=== PATIENT | female | born 1935 | race Caucasian/White ===

== ENCOUNTER → 2019-11-23 10:07 | Outpatient (BNVA) | payer MEDICARE, OTHER, SELFPAY | PROVIDERS: Family Provider Family Medicine; PCP Family Medicine; Visit Provider Family Medicine | DX: E78.2 Mixed hyperlipidemia (principal); I10 Essential (primary) hypertension; E04.9 Nontoxic goiter, unspecified; Z68.27 Body mass index [BMI] 27.0-27.9, adult; F17.211 Nicotine dependence, cigarettes, in remission | CPT/HCPCS: 80053; 80061; 85007; 85025; 87086 ==

== ENCOUNTER 2019-12-04 03:14 | Observation (INO) | payer MEDICARE, OTHER, SELFPAY ==
[2019-12-04] VITALS (17 sets, daily range): BP systolic 156–239; BP diastolic 49–106; PULSE 70–87; RESP 14–30; TEMP 36.1–36.7; O2SAT 92–922; BMI 27.7
--- NOTE | 2019-12-04 03:16 | ECG_ITS ---
[facility] Test Date: 2019-12-04 Pat Name: Chayito Tate Department: Room: 112 Gender: Female [place] Clerk: : 1935 Requested By: Gasper Monteiro Order Number: [id number] Naveed MD: Tobin Wang M.D. Measurements Intervals [place] Rate: 75 P: 61 AL: 199 QRS: -6 QRSD: 82 T: 95 QT: 411 QTc: 459 Interpretive Statements SINUS RHYTHM LEFT ATRIAL ENLARGEMENT [-0.15mV P WAVE IN V1/V2] ST DEVIATION AND MODERATE T-WAVE ABNORMALITY, CONSIDER LATERAL ISCHEMIA [-0.1+ mV T WAVE IN I/aVL/V5/V6] Compared to ECG 02/26/2019 22:59:14 Atrial abnormality now present T-wave abnormality still present Possible ischemia still present Electronically Signed On 12-04-2019 17:35:43 CDT by Tobin Wang M.D. [id number]
--- NOTE | 2019-12-04 03:16 | XRR_ITS ---
PROCEDURE INFORMATION: Exam: XR Chest, 1 View Exam date and time: 12/04/2019 3:35 AM Age: 84 years old Clinical indication: Chest pain; Type not specified; Prior surgery; Surgery type: Bilat mastectomy, stents; Additional info: Cp TECHNIQUE: Imaging protocol: XR of the chest Views: 1 view. COMPARISON: CR Chest 1 [place] [id number] 02/26/2019 8:59 PM FINDINGS: Lungs: A stable calcified granuloma seen in the right lower hemithorax. Pleural space: Unremarkable. No pleural effusion. No pneumothorax. Heart/Mediastinum: Unremarkable. No cardiomegaly. Bones/joints: Unremarkable. XR/XR chest 1V portable [id number] IMPRESSION: There are no acute chest findings.
--- NOTE | 2019-12-04 03:23 | W.ED.CHESTPA ---
HPI - Chest Pain General: Chief Complaint: Chest Pain Stated Complaint: chest pain Time Seen by Provider: 12/04/19 03:18 Source: patient Mode of arrival: ambulatory Limitations: no limitations History of Present Illness: HPI narrative: 84-year-old female has a history of coronary artery disease states she started having severe chest pain center of her chest roughly 2 to 3 hours ago. States pain radiated to her left arm. She states she took a nitro and her pain is now 2 out of 10. Denies any shortness of breath or vomiting. She states that the last time she had pain like this was in February and she had a heart attack at that time and had a stent placed. She has not followed up since then she has been too scared to come out of the house due to the coronavirus. Onset (ago): hour(s) Timing of current episode: constant Onset: during rest Pain radiation: left arm Severity: moderate Associated symptoms: Deny abdominal pain, dyspnea, fever(s), nausea or vomiting Review of Systems Const: Denies: fever(s), chills, body aches or change in appetite Eyes: Denies: blurry vision or eye discomfort ENMT: Denies: throat pain or dental pain Card: Reports: chest pain Resp: Denies: dyspnea GI: Denies: abdominal pain, nausea, vomiting or diarrhea : Denies: dysuria Musc: Denies: neck pain or back pain Skin/Breast: Denies: rash Neuro: Denies: headache(s) Psych: Denies: depression Woo/Lymph: Denies: easy bruising All/Imm: Denies: urticaria PFSH ED PFSH: Medical History (Updated 12/04/19 @ 05:10 by Brandon Abraham MD) CAD (coronary artery disease) CLL (chronic lymphocytic leukemia) Essential hypertension Hyperlipidemia Old [place] (myocardial infarction) Thyroid goiter Surgical History (Updated 12/04/19 @ 05:10 by Brandon Abraham MD) H/O: hysterectomy History of coronary artery stent placement History of rectal surgery S/P bilateral mastectomy S/P inguinal hernia repair Family History Father Cancer Brother Cancer Grandmother Suicide Grandfather Suicide Brother Suicide Social History Smoking and tobacco status: former smoker Alcohol intake: never Household members: friend(s) Marital status: / Physical Exam Const: COMMON NORMALS: no acute distress, patient oriented x3 and healthy appearing HENMT: COMMON NORMALS: normocephalic and atraumatic HEAD & SCALP: normocephalic and atraumatic Eye: COMMON NORMALS: Equal, round and reactive pupils present and EOMs intact bilaterally PUPIL: Yes Equal, round and reactive pupils present Neck/C-Spine: COMMON NORMALS: full ROM and supple Chest: COMMONS NORMALS: normal inspection of the chest and normal palpation of entire chest wall Resp: COMMON NORMALS: normal respiratory effort, No retractions, No use of accessory muscles and clear to auscultation bilaterally AUSCULTATION: clear to auscultation bilaterally Cardio: COMMON NORMALS: regular rate, regular rhythm and No murmurs present (Cardio) RATE: regular rate RHYTHM: regular rhythm GI: COMMON NORMALS: Normal to inspection, nondistended, normoactive bowel sounds present, Soft to palpation, non-tender and no masses PALPATION: Yes Soft to palpation Extremity: COMMON NORMALS: normal to inspection and full ROM Neuro: COMMON NORMALS: patient oriented x3, moves all extremities and no focal motor deficits Psych: COMMON NORMALS: mental status grossly normal, Normal thought process present and cooperative THOUGHT PROCESS: Normal thought process present Skin: COMMON NORMALS: no rashes or lesions noted and no wounds GENERAL SKIN EXAM: no rashes or lesions noted Course Vital Signs: Vital signs: Vital Signs Temperature 96.9 F L 12/04/19 03:19 Pulse Rate 76 12/04/19 05:00 Respiratory Rate 14 12/04/19 05:00 Blood Pressure 239/70 12/04/19 05:00 Pulse Oximetry 97 12/04/19 05:00 MDM - Chest Pain MDM Narrative: Medical decision making narrative: Patient presents here with chest pain. Patient's EKG and troponin here are benign. Does have extensive history and will admit for rule out. Spoke to hospitalist Dr. Russell and will admit. Lab Data: Labs: Lab Results 12/04/19 12/04/19 12/04/19 Range/Units 03:30 03:30 03:30 WBC 58.1 H* (4.0-10.0) 10^3/ uL RBC 3.66 L (4.1-5.3) 10^6/u L Hgb 11.5 (11.5-15.3) g/dL Hct 37.4 (37.0-47.0) % MCV 102.2 H (81-99) fL MCH 31.4 (28.0-34.0) pg MCHC 30.7 (30.0-36.0) g/dL RDW 14.5 (12.1-15.1) % Plt Count 180 (130-400) 10^3/c mm MPV 10.7 H (7.4-10.4) fL Neut % (Auto) 5.8 % Lymph % (Auto) 90.7 % Evangeline % (Auto) 3.0 % Eos % (Auto) 0.3 % Baso % (Auto) 0.1 % Neut # (Auto) 3.32 (1.8-7.7) 10^3/u L Lymph # (Auto) 52.7 H (0.8-4.8) 10^3/u L Evangeline # (Auto) 1.8 H (0.2-0.9) 10^3/u L Eos # (Auto) 0.2 (0.0-0.8) 10^3/u L Baso # (Auto) 0.1 (0.0-0.1) 10^3/u L Nucleated RBC % (a uto) 0 % Nucleated RBCs # 0.0 /100WBC PT 12.00 L (12.1-14.9) SECO NDS INR 0.86 (0.8-1.2) Sodium 141 (136-145) mmol/L Potassium 4.4 (3.5-5.1) mmol/L Chloride 108 H (98-107) mmol/L Carbon Dioxide 23 (22-29) mmol/L Anion Gap 14.4 (5-19) BUN 24 H (8-23) mg/dL Creatinine 1.2 H (0.5-0.9) mg/dL GFR Calculation Not Reportable Glucose 104 (65-115) mg/dL Calculated Osmolal ity 296 H (285-295) mOsm/k g Calcium 9.0 (8.5-10.5) mg/dL Total Bilirubin 0.2 (0.15-1.2) mg/dL AST 17 (0-32) U/L ALT 9 (0-33) U/L Alkaline Phosphata se 113 H (35-105) IU/L Troponin T Baselin e (0-10) ng/L Total Protein 6.3 L (6.6-8.7) g/dL Albumin 4.1 (3.5-5.2) g/dL Globulin 2.2 (1.3-4.6) g/dL 12/04/19 Range/Units 03:30 WBC (4.0-10.0) 10^3/ uL RBC (4.1-5.3) 10^6/u L Hgb (11.5-15.3) g/dL Hct (37.0-47.0) % MCV (81-99) fL MCH (28.0-34.0) pg MCHC (30.0-36.0) g/dL RDW (12.1-15.1) % Plt Count (130-400) 10^3/c mm MPV (7.4-10.4) fL Neut % (Auto) % Lymph % (Auto) % Evangeline % (Auto) % Eos % (Auto) % Baso % (Auto) % Neut # (Auto) (1.8-7.7) 10^3/u L Lymph # (Auto) (0.8-4.8) 10^3/u L Evangeline # (Auto) (0.2-0.9) 10^3/u L Eos # (Auto) (0.0-0.8) 10^3/u L Baso # (Auto) (0.0-0.1) 10^3/u L Nucleated RBC % (a uto) % Nucleated RBCs # /100WBC PT (12.1-14.9) SECO NDS INR (0.8-1.2) Sodium (136-145) mmol/L Potassium (3.5-5.1) mmol/L Chloride (98-107) mmol/L Carbon Dioxide (22-29) mmol/L Anion Gap (5-19) BUN (8-23) mg/dL Creatinine (0.5-0.9) mg/dL GFR Calculation Glucose (65-115) mg/dL Calculated Osmolal ity (285-295) mOsm/k g Calcium (8.5-10.5) mg/dL Total Bilirubin (0.15-1.2) mg/dL AST (0-32) U/L ALT (0-33) U/L Alkaline Phosphata se (35-105) IU/L Troponin T Baselin e 13 H (0-10) ng/L Total Protein (6.6-8.7) g/dL Albumin (3.5-5.2) g/dL Globulin (1.3-4.6) g/dL Imaging Data^: CXR: Attestation: I personally reviewed and interpreted this imaging study as follows: My impression: no acute abnormality EKG Data^: EKG 1: Attestation: I personally reviewed and interpreted this EKG as follows: EKG interpretation date: 12/04/19 EKG interpretation time: 03:22 Interpretation: nsr hr [address] or t wave abnormalities qrs 77 qtc 418 Discharge Plan Discharge Patient Disposition: Admitted As Inpatient Admit Provider: Brandon Abraham Clinical Impression: Chest pain Qualifiers: Chest pain type: unspecified Qualified Code(s): R07.9 - Chest pain, unspecified Condition: Stable Coding Level of Care Code ED Pipe Fitter Helper for 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
--- NOTE | 2019-12-04 03:25 | PC.NURSE ---
EKG done at 0325 and shown to ER doctor
[2019-12-04] MEDS: aspirin 81 mg Chew Tablet 324 MG PO (03:43)
[2019-12-04] MEDS: morphine 4 mg/mL SDV 1 mL IVP ×2 (03:44→23:40)
[2019-12-04 03:45] LABS: Basophils # 0.1 10^3/uL (0.0-0.1); Basophils % 0.1 %; Eosinophils # 0.2 10^3/uL (0.0-0.8); Eosinophils % 0.3 %; Hematocrit 37.4 % (37.0-47.0); Hemoglobin 11.5 g/dL (11.5-15.3); Lymphocytes # 52.7 10^3/uL (0.8-4.8); Lymphocytes % 90.7 %; Mean Corpuscular HGB Conc 30.7 g/dL (30.0-36.0); Mean Corpuscular Hemoglobin 31.4 pg (28.0-34.0); Mean Corpuscular Volume 102.2 fL (81-99); Mean Platelet Volume 10.7 fL (7.4-10.4); Monocytes # 1.8 10^3/uL (0.2-0.9); Neutrophils # 3.32 10^3/uL (1.8-7.7); Neutrophils % 5.8 %; Nucleated Red Blood Cells % 0 %; Platelet Count 180 10^3/cmm (130-400); Red Blood Count 3.66 10^6/uL (4.1-5.3); Red Cell Distribution Width 14.5 % (12.1-15.1)
[2019-12-04 03:52] LABS: INR 0.86 (0.8-1.2)
[2019-12-04 04:01] LABS: Alanine Aminotransferase 9 U/L (0-33); Albumin Level 4.1 g/dL (3.5-5.2); Alkaline Phosphatase 113 IU/L (35-105); Aspartate Amino Transferase 17 U/L (0-32); Blood Urea Nitrogen 24 mg/dL (8-23); Carbon Dioxide 23 mmol/L (22-29); Chloride 108 mmol/L (98-107); Globulin 2.2 g/dL (1.3-4.6); Glucose 104 mg/dL (65-115); Osmolality Calculated 296 mOsm/kg (285-295); Sodium 141 mmol/L (136-145); Total Bilirubin 0.2 mg/dL (0.15-1.2); Total Protein 6.3 g/dL (6.6-8.7)
[2019-12-04 04:02] LABS: Anion Gap 14.4 (5-19); Potassium 4.4 mmol/L (3.5-5.1)
[2019-12-04 04:04] LABS: Troponin(5th) Baseline 13 ng/L (0-10)
[2019-12-04] MEDS: hyDRALAzine 20 mg/mL INJ 1 mL 5 MG IVP (04:12)
[2019-12-04 04:19] LABS: Slide Review Slide Review Perform; White Blood Count 58.1 10^3/uL (4.0-10.0)
[2019-12-04] MEDS: nitroglycerin 0.4 mg sublingual Tablet SUBLINGUAL ×3 (05:02→23:22)
--- NOTE | 2019-12-04 05:07 | PC.NURSE ---
EKG done at 0505 and shown to ER doctor
--- NOTE | 2019-12-04 05:08 | PM.HP ---
Providers/Chief Complaint Admitting Physician: Brandon Abraham MD Primary Care Provider: Kamla Benavidez DO Chief Complaint: chest pain History of Present Illness Chayito Tate is a 84 year old female who carries history of established coronary disease status post stent placement in February 2019 came in with chief complaint of left arm pain radiating towards her back. Patient is stating that she has been experiencing left arm pain for last 2 days, she is describing this pain as sharp excruciating pain radiating towards her back, she has not noticed any chest pain, this arm pain resolved with taking nitroglycerin today. This pain is not similar to the one when she had stent placement in February. She did not experience any nausea, vomiting, diaphoresis, dizziness, syncope. She has history of CLL, mastectomy secondary to breast cancer. She is compliant with her medications, she has been leading a sedentary lifestyle, homebound due to the current pandemic. Diagnosis in the ER revealed hypertensive urgency, she required hydralazine 5 mg on admission, I have requested CTA chest and abdomen to rule out aortic dissection, her EKG showing ST depression in inferior lateral leads, troponin 13, patient is chest pain-free, on review of previous EKGs these changes are not new she had ST depression anterior inversion in inferior lateral leads previously as well Review of Systems Const: Reports: body aches, fatigue and malaise; Denies: fever(s) or chills Eyes: Denies: change in vision ENMT: Denies: throat pain Card: Reports: dyspnea on exertion Resp: Denies: dyspnea GI: Denies: abdominal pain : Denies: flank pain Musc: Reports: extremity pain and muscle cramps Skin/Breast: Denies: rash Neuro: Denies: headache(s) Psych: Denies: anxiety Endo: Denies: polyuria Woo/Lymph: Denies: easy bruising All/Imm: Denies: urticaria Medications/Allergies Home Medications Medication Instructions Recorded Confirmed Last Taken Type cholecalciferol (vitamin D3) 75 3,000 unit PO QDAY 04/09/19 11/23/19 Unknown History mcg (3,000 unit) tablet mecobalamin (vitamin B12) 5,000 5,000 mcg PO QDAY tab 04/09/19 11/23/19 Unknown History mcg disintegrating tablet melatonin 5 mg capsule 5 mg PO .AT BEDTIME PRN cap 04/09/19 11/23/19 Unknown History nitroglycerin 0.4 mg sublingual 0.4 mg SUBLINGUAL Q5M PRN 04/13/19 11/23/19 Unknown History tablet losartan 25 mg tablet 25 mg PO DAILY #90 tab 09/21/19 11/23/19 Unknown Rx metoprolol tartrate 75 mg tablet 75 mg PO BID #90 tab 11/23/19 11/23/19 Unknown Rx simvastatin 20 mg tablet 20 mg PO QDAY #90 tab 11/24/19 Unknown Rx clopidogrel 75 mg tablet 75 mg PO QDAY #90 tab 11/25/19 Unknown Rx Allergies Allergy/AdvReac Type Severity Reaction Status Date / Time Sulfa (Sulfonamide Allergy Mild Unknown Verified 11/23/19 09:30 Antibiotics) diphenhydramine AdvReac Mild ADR-Itching Verified 11/23/19 09:30 [From [facility]] PFSH Acute PFSH: Medical History CAD (coronary artery disease) CLL (chronic lymphocytic leukemia) Essential hypertension Hyperlipidemia [place] (myocardial infarction) Thyroid goiter Surgical History H/O: hysterectomy History of coronary artery stent placement History of rectal surgery S/P bilateral mastectomy S/P inguinal hernia repair Family History Father Cancer Brother Cancer Grandmother Suicide Grandfather Suicide Brother Suicide Social History Smoking and tobacco status: former smoker Alcohol intake: never Household members: friend(s) Marital status: / Vitals/I&O/Wt Last Vital Signs Temp 96.9 F L 12/04/19 03:19 Pulse 76 12/04/19 05:00 Resp 14 12/04/19 05:00 BP 239/70 12/04/19 05:00 Pulse Ox 97 12/04/19 05:00 Weight last 48 hrs Weight 72.121 kg Physical Exam Narrative: EXAM NARRATIVE: Very pleasant elderly female Currently comfortable in her bed Chest pain-free No radial radial delay S1, S2 systolic murmur right second intercostal space grade 2/6 No sign of heart failure EOMI, PERRLA No neurological deficit Abdomen soft nontender bowel sound present No lower extremity edema gangrene ulcer Lungs are clear to auscultation Appropriate mood and affect No skin ulcers noted Data : 12/04/19 03:30 12/04/19 03:30 A&P Assessment and plan (1) Hypertensive urgency: Status: Acute (2) Leucocytosis: Status: Acute (3) Back pain: Status: Acute (4) Left arm pain: Status: Acute Additional A&P Information Hypertensive urgency 228/70 mmHg blood pressure on admission which improved with hydralazine IV 5 mg Patient is complaining of left arm pain radiating towards her back No radio- radial delay, no vascular compromise, patient is currently chest pain-free CTA chest abdomen to rule out aortic dissection Increase the dose of metoprolol from 75 mg to 100 mg twice a day, added amlodipine Left arm pain radiating towards her back Patient not complaining of chest pain, will obtain echo to rule out wall motion abnormality, [id number], EKG showing old inferior lateral ST depression and T wave inversions Patient is not diabetic, she is not endorsing this pain similar to the one when stents were placed I highly doubt NSTEMI at this point, would not initiate anticoagulation for now, I do believe her symptoms are secondary to hypertensive urgency She also carries history of hiatal hernia CLL Leukocytosis secondary to CLL No signs of opportunistic infections No acute decompensation Chronic kidney disease Her baseline creatinine seems to be around 1.1 She is also taking losartan, for now I would only increase the dose of metoprolol for hypertensive urgency Full code DVT prophylaxis Heparin, which will be initiated after ruling out aortic dissection Cardiac diet Attestations Medical Necessity Statement*: Dissipating discharge in less than 48 hours currently need to rule out aortic dissection because of her back pain with hypertensive urgency Time Spent in Patient Care: (>than 50% of time spent in counselling and/or direct pt care on unit). 40 minutes Coding Level of Care Code Acute Occupational Therapy Supervisor for Giag Fwd Diagnoses Hypertensive urgency I16.0 Leucocytosis D72.829 Back pain M54.9 Left arm pain M79.602
--- NOTE | 2019-12-04 05:16 | ECG_ITS ---
[facility] Test Date: 2019-12-04 Pat Name: Chayito Tate Department: Room: 112 Gender: Female Ply Bander: : 1935 Requested By: Gasper Monteiro Order Number: [id number] Naveed MD: Kristal Jarvis M.D. Measurements Intervals [place] Rate: 79 P: 70 CT: 203 QRS: -1 QRSD: 77 T: 74 QT: 383 QTc: 441 Interpretive Statements SINUS RHYTHM LEFT ATRIAL ENLARGEMENT [-0.15mV P WAVE IN V1/V2] ST DEVIATION AND MODERATE T-WAVE ABNORMALITY, CONSIDER LATERAL ISCHEMIA [-0.1+ mV T WAVE IN I/aVL/V5/V6] Compared to ECG 02/26/2019 22:59:14 Atrial abnormality now present T-wave abnormality still present Possible ischemia still present Electronically Signed On 12-04-2019 8:38:34 CDT by Kristal Jarvis M.D. [id number] f
--- NOTE | 2019-12-04 05:42 | CTR_ITS ---
PROCEDURE INFORMATION: Exam: CT Angiography Chest With Contrast Exam date and time: 12/04/2019 5:43 AM Age: 84 years old Clinical indication: Chest pain; Prior surgery; Surgery type: Stents, mastectomy; Additional info: Rule out aortic dissection TECHNIQUE: Imaging protocol: Computed tomographic angiography of the chest with intravenous contrast. 3D rendering (Not supervised by radiologist): MIP and/or 3D reconstructed images were created by the technologist. Radiation optimization: All CT scans at this facility use at least one of these dose optimization techniques: automated exposure control; mA and/or kV adjustment per patient size (includes targeted exams where dose is matched to clinical indication); or iterative reconstruction. Contrast material: VISI; Contrast volume: 95 ml; Contrast route: INTRAVENOUS (IV); COMPARISON: CT chest w con* [id number] 12/13/2015 11:53 AM RADIATION DOSE METRICS: Total DLP (mGy-cm): 1024.01 FINDINGS: Pulmonary arteries: Normal. No pulmonary emboli. Aorta: Unremarkable. No aortic aneurysm. No aortic dissection. Great vessels off aortic arch: Diffuse calcifications are seen within the thoracic aorta and origin of the great vessels. Lungs: Calcifications are seen within the tracheobronchial tree. There is a 5.8 mm pulmonary nodularity seen in the right upper lobe medially. A calcified 4.7 mm granuloma seen in the right lung base laterally. Pleural space: Unremarkable. No pneumothorax. No pleural effusion. Heart: Calcifications are seen in the coronary arteries. Lymph nodes: Unremarkable. No enlarged lymph nodes. Bones/joints: Unremarkable. No acute fracture. Soft tissues: Unremarkable. IMPRESSION: 1. There is no evidence for aneurysmal dilatation or dissection of the thoracic aorta. 2. Pulmonary nodularity in the right upper lobe medially measuring 5.8 mm . For patients at low risk (minimal or absent history of smoking and of other known risk factors), no routine follow-up is indicated. For patients at high risk (history of smoking or of other known risk factors), consider optional CT at 12 months. (diony Tatum al., Fleischner Society, 2017) PROCEDURE INFORMATION: Exam: CT Angiography Abdomen With Contrast Exam date and time: 12/04/2019 5:43 AM Age: 84 years old Clinical indication: Chest pain; Prior surgery; Surgery type: Stents, mastectomy; Additional info: Rule out aortic dissection TECHNIQUE: Imaging protocol: Computed tomographic angiography images of the abdomen with intravenous contrast material. 3D rendering (Not supervised by radiologist): MIP and/or 3D reconstructed images were created by the technologist. Radiation optimization: All CT scans at this facility use at least one of these dose optimization techniques: automated exposure control; mA and/or kV adjustment per patient size (includes targeted exams where dose is matched to clinical indication); or iterative reconstruction. Contrast material: VISI; Contrast volume: 95 ml; Contrast route: INTRAVENOUS (IV); COMPARISON: CT chest w con* [id number] 12/13/2015 11:53 AM RADIATION DOSE METRICS: Total DLP (mGy-cm): 1024.01 FINDINGS: Mediastinum: There is a small hiatal hernia present. Aorta: Calcifications are seen within the abdominal aorta, iliac arteries bilaterally and origin of the left renal artery. Celiac trunk and mesenteric arteries: No occlusion or significant stenosis. Renal arteries: No occlusion or significant stenosis. Liver: Normal. No mass. Gallbladder and bile ducts: There is a tiny hyperdensity seen within the gallbladder compatible with tiny gallstone. Pancreas: Normal. No ductal dilation. Spleen: Normal. No splenomegaly. Adrenals: Normal. No mass. Kidneys and ureters: Normal. No hydronephrosis. Stomach and bowel: Unremarkable. No obstruction. No mucosal thickening. Lymph nodes: Unremarkable. No enlarged lymph nodes. Intraperitoneal space: Unremarkable. No free air. No significant fluid collection. Bones/joints: Unremarkable. No acute fracture. No dislocation. Soft tissues: Unremarkable. CT/CT angio chest abdomen IMPRESSION: 1. There is no evidence for aneurysmal dilatation, dissection or extravasation of the abdominal aorta. 2. Tiny gallstone 3. Small hiatal hernia Radiation Dose CTDIVOL = (mGy): DLP = 1024.01~1024.01 (mGy-cm)
--- NOTE | 2019-12-04 06:01 | PC.NURSE ---
PT delay leaving ED due to floor MD exam. Sent pt for CTA on the way to floor. Juliann grier
[2019-12-04 06:02] LABS: Troponin 5 2HR 12.43 ng/L (0-10)
[2019-12-04 06:03] LABS: Troponin 5 2HR Delta -0.57 ABS# (0-10)
--- NOTE | 2019-12-04 06:12 | USCV_ITS ---
Chayito Tate Age: 84 Gender: F : 1935 Exam Date: 12/04/2019 11:03 Ordering Phys: Brandon Abraham MD Technologist: Sherry Griffith [place] [facility] [place] BP: 178 / 72 HR: 78 Rhythm: Sinus Technical Quality: Adequate MEASUREMENTS (Male / Female) Normal Values 2D ECHO LV Diastolic Diameter PLAX 2.9 cm 4.2 - 5.9 / 3.9 - 5.3 cm LV Systolic Diameter PLAX 2.1 cm LV Chamber Size 3.7 cm IVS Diastolic Thickness 1.6 cm 0.6 - 1.0 / 0.6 - 0.9 cm IVS Systolic Thickness 1.9 cm LVPW Diastolic Thickness 1.1 cm 0.6 - 1.0 / 0.6 - 0.9 cm LVPW Systolic Thickness 1.5 cm RV Chamber Size 2.2 cm LVOT Diameter 1.7 cm LV Ejection Fraction 2D Teich 56.5 % LV Ejection Fraction MOD 2C 69.7 % LV Ejection Fraction 2C AL 71.7 % LA Diameter 2.8 cm LA Width 3.3 cm LA Height 3.9 cm RA Width 2.1 cm RA Height 4.6 cm Aorta at Sinotubular Diameter 2.5 cm M-MODE LV Diastolic Diameter MM 4.0 cm 4.2 - 5.9 / 3.9 - 5.3 cm LV Systolic Diameter MM 2.2 cm LV Ejection Fraction MM Teich 77.1 % IVS Diastolic Thickness MM 1.2 cm 0.6 - 1.0 / 0.6 - 0.9 cm IVS Systolic Thickness MM 1.8 cm LVPW Diastolic Thickness MM 1.1 cm 0.6 - 1.0 / 0.6 - 0.9 cm LVPW Systolic Thickness MM 1.7 cm RV Diastolic Diameter MM 1.6 cm Aortic Annulus Diameter 3.4 cm LA Ao Ratio MM 0.8 MV E Point Septal Separation 0.7 cm DOPPLER AV Peak Velocity 119.0 cm/s LVOT Peak Velocity 100.0 cm/s AV Area Cont Eq vti 1.8 cm squared AV Area Cont Eq pk 2.0 cm squared MV Area PHT 3.7 cm squared Mitral E to A Ratio 1.0 MV E' Velocity 9.0 cm/s Mitral E to MV E' Ratio 15.8 Mitral E to LV E' Lateral Ratio 13.0 Mitral E to LV E' Septal Ratio 20.5 TR Peak Velocity 290.0 cm/s TR Peak Gradient 33.7 mmHg TV Peak E Velocity 50.0 cm/s Right Atrial Pressure 3.0 mmHg Pulmonary Artery Systolic Pressu 36.6 mmHg PV Peak Velocity 77.0 cm/s RV Acceleration Time 0.1 s RV Ejection Time 0.3 s RV AcT/ET 0.4 FINDINGS Left Ventricle Normal left ventricular size and systolic function. LVEF is 55 to 60%. No regional wall motion abnormalities. Moderate LVH is noted. Grade 2 diastolic dysfunction is present. Elevated filling pressure. Right Ventricle The right ventricle is normal in size and function. Right Atrium The right atrium is normal in size. Left Atrium The left atrium is normal in size. Mitral Valve Mild mitral annular calcification is present.. There is mild to moderate mitral regurgitation. Aortic Valve Structurally normal aortic valve without significant sclerosis or stenosis. There is no aortic regurgitation. Tricuspid Valve Structurally normal tricuspid valve without significant stenosis there is mild tricuspid regurgitation noted. RVSP is 35 to 40 mmHg. Mild pulmonary hypertension. Pulmonic Valve Structurally normal pulmonic valve without significant stenosis. There is mild pulmonic regurgitation. Pericardium Normal pericardium without effusion. Aorta Normal ascending aorta dimension. CONCLUSIONS LV systolic function is normal with EF of 55 to 60%. Grade 2 diastolic dysfunction. Mild to moderate mitral regurgitation is noted. Mild pulmonary hypertension is present. Tobin Wang MD (Electronically Signed) Final Date: 04 December 2019 13:21 S
[2019-12-04] MEDS: iodixanol 320 mg/mL 100mL Btl IV (06:13)
--- NOTE | 2019-12-04 06:35 | PC.NURSE ---
Called Dr. Abraham patient started wheezing and sounds like crackles. Patient was 81-83% on room air. Patient on 6L and satting 91%. NO orders for RT. Jarad stated he would be here in 10 min to examine patient. Patient stated this started after the CT scan. WIll continue to monitor.
--- NOTE | 2019-12-04 06:47 | XRR_ITS ---
PROCEDURE INFORMATION: Exam: XR Chest, 1 View Exam date and time: 12/04/2019 6:47 AM Age: 84 years old Clinical indication: Shortness of breath; Additional info: Crackles TECHNIQUE: Imaging protocol: XR of the chest Views: 1 view. COMPARISON: CR XR chest 1V portable [id number] 12/04/2019 3:21 AM FINDINGS: Lungs: Few scattered calcified granulomata. Minor areas of interstitial thickening. No lobar consolidation. Pleural space: No pleural effusion. Heart/Mediastinum: Stable heart size. Bones/joints: Osteopenia. XR/XR chest 1V portable [id number] IMPRESSION: Stable chest without acute process.
[2019-12-04] MEDS: ipratropium-albuterol 3 mL Neb INHALATION ×2 (07:26→23:33)
[2019-12-04] MEDS: hyDRALAzine 20 mg/mL INJ 1 mL 10 MG IVP ×2 (07:36→22:49)
[2019-12-04] MEDS: heparin 5,000 unit/mL INJ 1 mL 5000 UNIT SUBCUT ×3 (07:37→22:50)
--- NOTE | 2019-12-04 08:00 | P.PN_ITS ---
Subjective Subjective: Interval history: overnight labs and H&P reveiwed . no new complaints. CTA chest and abdomen without evidence of dissection. chest pain resolved with BP control. 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: no focal neuro deficits Data : 12/04/19 03:30 12/04/19 03:30 A&P Assessment and plan (1) Hypertensive urgency: Status: Acute (2) Leucocytosis: Status: Acute (3) Back pain: Status: Acute (4) Left arm pain: Status: Acute Additional A&P Information Hypertensive urgency Continues to have SBP >200, hydralazine added 10mg ivp q4h prn CTA chest abdomen to rule out aortic dissection negative fo rthe same Increase the dose of metoprolol from 75 mg to 100 mg twice a day, added amlodip ine Left arm pain radiating towards her back Patient not complaining of chest pain, will obtain echo to rule out wall motion abnormality, , EKG showing old inferior lateral ST depression and T wave inversions Troponins withotu isgnificant delta Patient is not diabetic, she is not endorsing this pain similar to the one when stents were placed I highly doubt NSTEMI at this point, would not initiate anticoagulation for now, I do believe her symptoms are secondary to hypertensive urgency She also carries history of hiatal hernia CLL Leukocytosis secondary to CLL No signs of opportunistic infections No acute decompensation Chronic kidney disease Her baseline creatinine seems to be around 1.1 She is also taking losartan, for now I would only increase the dose of metoprolol for hypertensive urgency Full code Attestations Medical Necessity Statement*: Hypertensive urgency, needs optimal BP control Coding Level of Care Code Acute Head Of Transport Logistics for Chg Fwd Diagnoses Hypertensive urgency I16.0 Leucocytosis D72.829 Back pain M54.9 Left arm pain M79.602
[2019-12-04] MEDS: metoprolol tartrate 50 mg Tablet 100 MG PO ×2 (08:08→17:08)
[2019-12-04] MEDS: clopidogrel 75 mg Tablet PO (08:08)
[2019-12-04] MEDS: amlodipine 10 mg Tablet PO (08:08)
[2019-12-04] MEDS: atorvastatin 40 mg Tablet 10 MG PO (08:08)
[2019-12-04] MEDS: losartan 50 mg Tablet 25 MG PO (08:09)
--- NOTE | 2019-12-04 09:16 | ECG_ITS ---
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 Measurements Intervals [place] Rate: 73 P: 61 IN: 193 QRS: -4 QRSD: 85 T: 97 QT: 432 QTc: 479 Interpretive Statements SINUS RHYTHM WITH MARKED SINUS ARRHYTHMIA LEFT ATRIAL ENLARGEMENT [-0.15mV P WAVE IN V1/V2] ST DEVIATION AND MODERATE T-WAVE ABNORMALITY, CONSIDER LATERAL ISCHEMIA [-0.1+ mV T WAVE IN I/aVL/V5/V6] INTERPRETATION BASED ON A DEFAULT AGE OF 40 YEARS Compared to ECG 12/04/2019 05:07:01 No significant changes Electronically Signed On 12-04-2019 18:05:05 CDT by Tobin Wang M.D. [email or web address]
[2019-12-04 10:03] LABS: Troponin 5 6HR 14.01 ng/L (0-10); Troponin 5 6HR Delta 1.01 ng/L (0-12)
--- NOTE | 2019-12-04 14:42 | PC.CHAP ---
Pastoral Care Encounter/Spiritual Assessment Type of Contact [] Declined laboratory scientist visit [] Patient/Family/Request visit [] Outpatient visit [] Follow-up visit [] Physician referral [] Code/Alert [X] Routine visit [] Staff referral [] Actively dying [] Patient sleeping [] Family support [] [] Out of room [] Palliative care [] [] Receiving care in room [] Pre-surgical visit [] Trauma [] Long length of stay [] ICU visit [] Other: Relational/Emotional Strength [] Patient feels connected with others/family/visitors/staff [] Distress [] Loneliness/isolation [] Abandonment Spirituality of Patient [] Person of Kari [] Attends Hinduism of their Kari [] Believes in Prayer [] Reads Bible or Orthodox materials [] There are Spiritual issues to be addressed Shirt Turner Interventions [] Prayer [] Active listening [] Non-anxious presence [] Spiritual/emotional support [] Crisis/trauma care [] Spiritual counseling [] Bereavement support [] Provided bereavement packet [] Provided Bible/devotional materials [] Provided toy/stuffed animal, coloring book to patient or family member [] Provided Communion [] Anointing/[place] [] Salvation [] Completed spiritual assessment [] Other: Impact on Illness or Injury [] Angry [] Fearful [] Anxious [] Often cries [] Exhaustion [] Unable to work [] Unable to attend moravian [] Unable to walk/stand [] Unable to read [] Unable to drive [] Unable to eat/drink [] Unable to sleep [] Unable to be with family [] Patient intubated [] Other: Summary Time spent with patient
--- NOTE | 2019-12-04 20:33 | PC.NURSE ---
Rounding: Patient is resting in bed. patient remains alert and oriented. denies any pain. Will continue to monitor.
--- NOTE | 2019-12-04 22:49 | PC.NURSE ---
Patient called stating she had L arm pain and was short of breath. Patient blood pressure 184/71 HR 80 Oxygen 93 percent on room air. Patient given 10mg of hydrazine IVP and at 2315 patients blood pressure was 160/69 and her was a 8/10 and patient was given 2 nitro sublinguial 5 minutes apart and applied 2L of oxygen. after second nitro blood pressure was 143/53. Dr. Abraham was called reguarding continue pain. Orders recieved for RT assess and treat where patient recieved a breathing treatment and this per patient stated it helped her. Orders also recieved for 4mg of Morphine IVP x1 dose. Read back verbal order.
[2019-12-05] VITALS (8 sets, daily range): BP systolic 92–177; BP diastolic 45–68; PULSE 73–83; RESP 18–26; TEMP 36.6–36.8; O2SAT 90–95
--- NOTE | 2019-12-05 00:30 | PC.NURSE ---
Patient complaint of experiencing visual side effects. Patient knows who shes, the year, where she is, and the president. Patient stated she only has the effect while falling asleep and this is after morphine administration. Dr. Abraham aware. Updated on patient current vitals, and patient experience. Orders to continue to monitor patient.
--- NOTE | 2019-12-05 05:54 | PC.NURSE ---
End of shift: Patient remains alert and oriented. PAtient rested well and denies pain.Will continue to monitor.
[2019-12-05 06:37] LABS: Anion Gap 17.5 (5-19); Blood Urea Nitrogen 26 mg/dL (8-23); Calcium 8.3 mg/dL (8.5-10.5); Carbon Dioxide 20 mmol/L (22-29); Chloride 107 mmol/L (98-107); Glucose 110 mg/dL (65-115); Osmolality Calculated 295 mOsm/kg (285-295); Potassium 4.5 mmol/L (3.5-5.1); Sodium 140 mmol/L (136-145)
[2019-12-05] MEDS: heparin 5,000 unit/mL INJ 1 mL 5000 UNIT SUBCUT (08:00)
[2019-12-05] MEDS: atorvastatin 40 mg Tablet 10 MG PO (08:01)
[2019-12-05] MEDS: amlodipine 10 mg Tablet PO (08:01)
[2019-12-05] MEDS: losartan 50 mg Tablet 25 MG PO (08:02)
[2019-12-05] MEDS: clopidogrel 75 mg Tablet PO (08:03)
[2019-12-05] MEDS: metoprolol tartrate 50 mg Tablet 100 MG PO (08:03)
--- NOTE | 2019-12-05 10:04 | PC.CHAP ---
Pastoral Care Encounter/Spiritual Assessment Type of Contact [x] Declined truckload checker visit [] Patient/Family/Request visit [] Outpatient visit [] Follow-up visit [] Physician referral [] Code/Alert [] Routine visit [] Staff referral [] Actively dying [] Patient sleeping [] Family support [] [] Out of room [] Palliative care [] [] Receiving care in room [] Pre-surgical visit [] Trauma [] Long length of stay [] ICU visit [] Other: Relational/Emotional Strength [] Patient feels connected with others/family/visitors/staff [] Distress [] Loneliness/isolation [] Abandonment Spirituality of Patient [] Person of Kari [] Attends Jainism of their Kari [] Believes in Prayer [] Reads Bible or Hinduism materials [] There are Spiritual issues to be addressed Rn Progressive Care Unit Interventions [] Prayer [] Active listening [] Non-anxious presence [] Spiritual/emotional support [] Crisis/trauma care [] Spiritual counseling [] Bereavement support [] Provided bereavement packet [] Provided Bible/devotional materials [] Provided toy/stuffed animal, coloring book to patient or family member [] Provided Communion [] Anointing/Rosalia [] Salvation [] Completed spiritual assessment [] Other: Impact on Illness or Injury [] Angry [] Fearful [] Anxious [] Often cries [] Exhaustion [] Unable to work [] Unable to attend holiness [] Unable to walk/stand [] Unable to read [] Unable to drive [] Unable to eat/drink [] Unable to sleep [] Unable to be with family [] Patient intubated [] Other: Summary Declined Rn Progressive Care Unit visit. Time spent with patient 2 minutes.
--- NOTE | 2019-12-05 10:49 | PM.DCS ---
Discharge Providers Date of Admission: 12/04/19 04:43 Date of Discharge: December 05, 2019 Attending Provider at Admission: Brandon Abraham MD Attending Provider at Discharge: Haley Felix MD Primary Care Provider: Kamla Benavidez DO Diagnoses at Discharge Discharge Diagnosis (1) Hypertensive urgency: Status: Acute (2) Leucocytosis: Status: Acute (3) Back pain: Status: Acute (4) Left arm pain: Status: Acute Reason for Visit Reason for Visit: chest pain Hospital Course Discharge Summary: Chayito Tate is a 84 year old female who carries history of established coronary disease status post stent placement in February 2019 came in with chief complaint of left arm pain radiating towards her back. This pain is not similar to the one when she had stent placement in February. She did not experience any nausea, vomiting, diaphoresis, dizziness, syncope. She has history of CLL, mastectomy secondary to breast cancer. Diagnostics in the ER revealed hypertensive urgency with SBP as high as 240. EKG showed some ST depression in the inferolateral leads, however these were not new on review of prior EKGs. Her troponins did not show significant diagnostic toward 6 hours. With control of blood pressure her chest pain improved significantly. CTA of the chest and abdomen was performed and did not show any evidence of dissection. Her metoprolol was increased from 75 twice a day to 100 mg twice a day. Losartan was continued. Amlodipine 10 mg was added once a day to her existing regimen. She had a as needed 10 mg IV hydralazine once which significantly reduced her blood pressure to 90. For now I will prescribe 5 mg p.o. as needed if systolic blood pressure is greater than 180 at home. She requests that I explain all medication changes to Chan instead of her son or daughter as chan takes care of her current medical issues. Chest pain is resolved by the time of discharge. Blood pressure at discharge is ranging between systolic of 1 50-1 60 which is acceptable given recent hypertensive urgency. She is encouraged to follow-up with cardiology and her primary care provider. 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 She requests to reinitiate care with cardiology here. States she has seen Dr. Conley in the past. Physical Exam Narrative: EXAM NARRATIVE: GEN: Awake, alert and oriented, no acute distress CVS: S1S2 N RS: CTA B/L Abd: Soft, nt/nd , bs+ CHIEF ESTIMATOR: no focal neuro deficits Discharge Data Data Completed and Pending: Completed Studies During Hospitalization Category Date Time Status CT angio chest ab domen Stat Cat Scan 12/04/19 05:42 Completed XR chest 1V jemima ble [id number] Stat Exams 12/04/19 03:16 Completed XR chest 1V jemima ble [id number] Stat Exams 12/04/19 06:47 Completed CV echo complete* [id number] Routine Ultrasound 12/04/19 06:12 Completed Labs from last 24 hours 12/05/19 06:07 Sodium 140 Potassium 4.5 Chloride 107 Carbon Dioxide 20 L Anion Gap 17.5 BUN 26 H Creatinine 0.9 GFR Calculation Not Reportable Glucose 110 Calculated Osmolal ity 295 Calcium 8.3 L Vitals: Last Vital Signs Temp 98.0 F 12/05/19 07:32 Pulse 83 12/05/19 07:32 Resp 25 H 12/05/19 07:32 BP 177/60 12/05/19 08:02 Pulse Ox 95 12/05/19 07:32 Discharge Plan Discharge Patient Disposition: Home Condition: Stable Prescriptions: New losartan 50 mg Tablet 25 mg PO DAILY Qty: 0 RF: 0 amlodipine 10 mg Tablet 10 mg PO DAILY 30 Days Qty: 30 RF: 0 hydralazine 10 mg tablet 5 mg PO TID PRN (Reason: hypertension) 30 Days Qty: 90 RF: 0 Continued cholecalciferol (vitamin D3) 3,000 unit tablet 3,000 unit PO DAILY RF: 0 mecobalamin (vitamin B12) 5,000 mcg tablet,disintegrating 5,000 mcg PO DAILY RF: 0 clopidogrel 75 mg tablet 75 mg PO DAILY RF: 0 simvastatin 20 mg tablet 20 mg PO DAILY RF: 0 Benadryl 25 mg Capsule 25 mg PO BEDTIME RF: 0 Probiotic 1 cap PO BEDTIME RF: 0 Stool Softener 1 cap PO BID RF: 0 nitroglycerin 0.4 mg tablet, sublingual 0.4 mg SUBLINGUAL Q5M PRN (Reason: Chest Pain) 30 Days Qty: 30 RF: 0 Changed metoprolol tartrate 75 mg tablet 100 mg PO BID 30 Days Qty: 60 RF: 1 Discharge Orders: Discharge Order (Routine); Ordered 12/05/19 Ordered By: Haley Felix Referrals: Kamla Benavidez DO [Primary Care Provider] - 4-7 days (hospital discharge follow up for hypertensive urgency ) Wayne Conley MD [Physician] - 7-10 days (Hospital discharge follow up for hypertensive urgency and chest pain . 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
== END 2019-12-05 12:05 | disposition home or self-care (01) ==
LOC: ER 04:45 → CSU 04:55
PROVIDERS: Emergency Medicine; Admitting Provider Internal Medicine; PCP Family Medicine; Visit Provider Student in an Organized Health Care Education/Training Program
DX: I16.0 Hypertensive urgency (principal); M79.602 Pain in left arm; M54.9 Dorsalgia, unspecified; R07.9 Chest pain, unspecified; I25.10 Atherosclerotic heart disease of native coronary artery without angina pectoris; I25.2 Old myocardial infarction; I12.9 Hypertensive chronic kidney disease with stage 1 through stage 4 chronic kidney disease, or unspecified chronic kidney disease; N18.9 Chronic kidney disease, unspecified; E78.5 Hyperlipidemia, unspecified; C91.10 Chronic lymphocytic leukemia of B-cell type not having achieved remission; Z87.891 Personal history of nicotine dependence; Z95.5 Presence of coronary angioplasty implant and graft; Z88.2 Allergy status to sulfonamides
CPT/HCPCS: 12345; 36415; 71045; 71275; 74175; 80048; 80053; 84484; 85025; 85610; 93005; 93306; 94640; 96372; 96374; 96375; 99283; 99285; G0378; J0360; J1644; J2270; Q9967

== ENCOUNTER 2020-01-06 15:18 | Outpatient (CLI) | payer MEDICARE, OTHER, SELFPAY ==
--- NOTE | 2020-01-10 07:51 | ONC FU_ITS ---
Dr. Archibald Patient Follow-Up Note Patient: Chayito Tate Unit #: [id number]: 1935 Dicatated By: Remy Archibald M.D.Date of Visit:Jan 06, 2020 Onc Med Follow-up/Prog Note Chief Complaint: Chronic lymphocytic leukemia. History of Present Illness: This is an 84 year-old woman with chronic lymphocytic leukemia, Shepard stage 0. She has known chronic leukocytic leukemia, Shepard stage 0, initially diagnosed in 2010. She has been followed on observation/expectant management, thus far with no evidence of symptomatic progression. She has remote history of right breast cancer, diagnosed in 1976 and treated with mastectomy and adjuvant radiation. She underwent prophylactic left mastectomy 1977. During follow-up she has had problems with lymphedema of the right arm, but there has been no evidence of recurrence of the breast cancer. Her medical illnesses, in addition to chronic leukocytic leukemia and breast cancer, include hypertension, hyperlipidemia, GERD, and mitral valve prolapse. She was told by Dr. Conley that she has nighttime angina. Her DEXA scan showed significant osteoporosis with T score -2.3. Additionally, vitamin D deficiency was identified. Her other surgeries include hemorrhoidectomy in the 1960s and glaucoma surgery. She also had a hysterectomy, reportedly with bilateral oophorectomy. 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 She has history of smoking 1-1/2 packs of cigarettes daily for 10 years, but she quit smoking in 2008. INTERIM HISTORY: On 11/24/2018 she presented to the emergency room with pain across her lower abdomen of 4 days duration. She also was having nausea and constipation, but no vomiting. Her hemoglobin was down just slightly compared to baseline. Her white blood cell count had declined to 50,000 compared to 79,600 at her scheduled visit here in June 2018. Her platelet count was normal at 253,000. Chem profile was unremarkable except for slightly elevated alkaline phosphatase, but that was similar to previous studies. Contrast-enhanced CT of the abdomen/pelvis showed a complex appearing cystic and solid left adnexal mass lesion involving the left ovary and adjacent sigmoid colon. The origin of the mass was uncertain with the reported differential including diverticular abscess or ovarian origin neoplasm. She was discharged home without specific treatment. I had seen her for a follow-up visit on 11/27/2018. At that point she was still having abdominal pain, I did arrange for her to follow-up with Dr. Argueta. There was no evidence, though, of symptomatic progression of the chronic lymphocytic leukemia. In February 2019 she was admitted to [facility] in [place] with chest pain. She underwent coronary angioplasty/stent placement. She had further evaluation with CT angiogram of the chest and abdomen on 12/04/2019. It showed no evidence for aneurysmal dilatation or dissection of the thoracic aorta. The showed no lymphadenopathy or hepatosplenomegaly. She is seen for a follow-up visit. She says her energy is not good and she has very limited activity. She is up and around, though. ECOG score is 2. She has good appetite. She has no fever or night sweats. She has a dry cough. She does not complain of shortness of breath or chest pain. She has no GI/ complaints other than she is been getting up about every 2 hours at night to void. She has no significant joint or bone pain. She does not complain of headache. She sometimes has tingling in her left hand. She has no other focal neurologic symptoms. Medications: amLODIPine Besylate 1 Tablet (of 5 mg) Oral daily, Lopressor 1 Tablet (of 100 mg) Oral b.i.d., Plavix 1 Tablet (of 75 mg) Oral daily, Probiotic 1 Capsule Oral daily, Simvastatin 1 (20 mg) Tablet Oral daily, Stool Softener 1 Tablet Oral b.i.d., Vitamin B-12 1 (1000 mcg) Tablet Oral daily, Vitamin D 1 (1000 Units) Tablet Oral daily Allergies: Sulfa Drugs Review of Systems: Constitutional - Her energy is not good. She has limited activity, which she does get up and around. Her appetite is good. She has no fever or night sweats. ECOG score is 2, ENMT - She has chronic allergy related sinus symptoms. No mouth sores. No sore throat or difficulty swallowing, Hematologic/Lymphatic - She has easy bruising, Respiratory - No shortness of breath. She has a dry cough. No pleuritic pain or hemoptysis, Cardiovascular - In February she was admitted to [facility] with chest pain and she underwent coronary angioplasty/stent placement. She has since then had issues with her blood pressure, but no further chest pain, Gastrointestinal - No nausea or vomiting. She has occasional acid reflux. No diarrhea or constipation. No blood in the stool or black stools, Genitourinary (F) - No dysuria or hematuria. No urinary frequency, but she does get up to void about every 2 hours at night. No urgency or incontinence, Musculoskeletal - No joint or bone pain, Integumentary - No skin rash, Neurologic - No headache. She gets dizzy if she turns too quickly. She sometimes has tingling in her left hand. No other focal neurologic symptoms, Psychiatric - She has anxiety/depression. She does not sleep well at night. Vital Signs: Performed on Jan 06, 2020 15:41 Height - 64.00 in Weight - 161.0 lbs (HIGH) BSA - 1.78 sq.m BMI - 27.64 Temperature - 98.0 F (LOW) Pulse - 76 /min Respiration - 20 /min BP - 151/55 mm(hg) (HIGH) O2 Sat - 97 % Pain - 0 Physical Examination: Constitutional - She appears somewhat weak generally, Eyes - Sclerae nonicteric. Conjunctivae clear, ENMT - No lesions noted in the oral cavity, Hematologic/Lymphatic - No cervical or clavicular adenopathy, Respiratory - Lungs are clear with good air movement bilaterally, Cardiovascular - Heart rhythm is regular. There is II/ a systolic murmur. There is no gallop or rub noted, Abdomen - Soft. Liver and spleen are not enlarged. There is no abdominal mass or ascites noted and there is no inguinal adenopathy, Extremities - Slight lower extremity edema. There is mild lymphedema of the right arm, Neurologic - No focal neurologic deficits noted. Lab/Imaging: CBC from 12/04/2019 showed hemoglobin 11.5 g, white blood cell count 58,100, and platelet count 180,000. The absolute lymphocyte count was 52,700. Comprehensive metabolic profile showed borderline renal function with BUN 24 and creatinine 1.2 mg/dL. Alkaline phosphatase was slightly elevated at 113/105 IU/L. The other liver enzymes were normal. Impression: 1. Patient with chronic leukocytic leukemia, Shepard stage 0 at initial diagnosis in November 2010. She has been followed on observation/expectant management. 2. She has become mildly anemic, but the cause is uncertain. 3. 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 The clinical significance of that finding remains uncertain. 4. She has remote history of right breast cancer with chronic lymphedema of the right arm following mastectomy/radiation. Her other medical illnesses include: 5. Hypertension. 6. Hyperlipidemia. 7. Mitral valve prolapse. 8. Suspected nocturnal angina. 9. GERD. 10. Osteoporosis/vitamin D deficiency. During followup there had been a gradual increase in her lymphocyte count. She also has been slightly anemic. However, as of her follow-up visit in June 2018 she did not appear to have any symptomatic disease progression and there appeared to be no indication for treatment for the chronic lymphocytic leukemia. As such, she continued on observation/expectant management. In November 2018 she had presented with new onset of lower abdominal pain. Her CT at that time showed evidence of a complex cystic mass involving the left ovary or adjacent sigmoid colon. She had been referred to Dr. Argueta for further management, and I am really not certain what further evaluation was done at that time. In February 2019 she underwent coronary angioplasty/stent placement. A CT angiogram of the chest and abdomen in November 2019 showed a 5.8 mm pulmonary nodule in the right upper lobe. There were no other findings of malignancy. I am not certain if the area of the previously reported cystic mass was included on that study. She does have very limited activity tolerance, but she otherwise appears stable clinically with no evidence of symptomatic progression of the chronic lymphocytic leukemia. Plan: I will review the CT scans, sign uncertain what became of the cystic mass reported on the November 2018 study. She will otherwise just continue on observation/expectant management for the chronic lymphocytic leukemia. I will tentatively plan a follow-up visit in 6 months. Signed By: Remy Archibald M.D. <<Signature on File>>
== END 2020-01-06 15:19 | disposition home or self-care (01) ==
LOC: ONCMED 15:24
PROVIDERS: PCP Family Medicine; Visit Provider Internal Medicine Medical Oncology
DX: C91.10 Chronic lymphocytic leukemia of B-cell type not having achieved remission (principal); I10 Essential (primary) hypertension; E78.5 Hyperlipidemia, unspecified; I34.1 Nonrheumatic mitral (valve) prolapse; I20.9 Angina pectoris, unspecified; K21.9 Gastro-esophageal reflux disease without esophagitis; M81.0 Age-related osteoporosis without current pathological fracture; E55.9 Vitamin D deficiency, unspecified
CPT/HCPCS: 99214

== ENCOUNTER 2020-01-20 12:28 | Outpatient (CLI) | payer MEDICARE, OTHER, SELFPAY ==
--- NOTE | 2020-01-20 12:45 | USCV_ITS ---
Chayito Tate Age: 84 Gender: F : 1935 Exam Date: 01/20/2020 12:44 Ordering Phys: Wayne Conley MD ([email or web address]) Technologist: Josie Garcia Exam Location: [facility] [place] Indication: bilateral carotid stenosis Risk Factors: Unknown Previous Vascular Surgery: Right Brachial BP: / Left Brachial BP: / Right Left Velocity (cm/s) Spectral Plaque Velocity (cm/s) Spectral Plaque Syst/Diast Broadening Syst/Diast Broadening 147.20/13.10 Wild Prox CCA 160.10/ 18.00 Hetro 131.50/10.50 Wild Mid CCA 161.90/ 18.00 Hetro 129.30/10.30 Wild Distal CCA 152.90/ 18.00 Hetro 80.20/ 10.50 Hetro Prox ICA 102.50/ 15.80 Hetro 161.70/14.50 Mid ICA 146.00/ 14.00 155.10/21.00 Distal ICA 121.20/ 20.20 190.70 Hetro ECA 178.10 Hetro 1.10 ICA/CCA 0.90 Antegrade Vertebral Antegrade 85.40/ 10.50 cm/s 51.30/ 11.10 cm/s Bi Subclavian Bi 197.9 261.2 0 0 FINDINGS Moderate heterogeneous plaques at the bifurcation and internal carotid arteries bilaterally Intimal thickening and minimal plaques in the common carotid arteries bilaterally Antegrade flow in the vertebral arteries bilaterally Elevated flow velocities in the external carotid arteries bilaterally CONCLUSIONS Moderate diffuse heterogeneous plaques in the internal carotid arteries and at the bifurcations bilaterally. Elevated velocities bilaterally in the internal carotid arteries, suggestive of greater than 50% stenosis. Elevated velocities in the external carotid arteries, may suggest hemodynamically significant stenosis In view of the diffuse plaques, consider CTA, to better evaluate the carotid arteries Dr Wayne Conley MD [facility] (Electronically Signed) Final Date: 21 January 2020 01:08 S
== END 2020-01-20 12:29 | disposition home or self-care (01) ==
PROVIDERS: PCP Family Medicine; Visit Provider Internal Medicine Cardiovascular Disease
DX: I65.23 Occlusion and stenosis of bilateral carotid arteries (principal)
CPT/HCPCS: 93880

== ENCOUNTER 2020-09-26 09:00 | Outpatient (CLI) | payer MEDICARE, OTHER, SELFPAY ==
--- NOTE | 2020-09-26 09:30 | CT_ITS ---
WS: [id number] CTA HEAD AND NECK TECHNIQUE: Contrast enhanced CTA of the head and neck with coronal and sagittal reformatted images an d maximum intensity projection (MIP) images. NASCET criteria utilized. CLINICAL INFORMATION: I65.22 - Occlusion and stenosis of left carotid artery COMPARISON: None. DLP: 1325.[address] scans at [facility] use at least one of these dose optimization techniques: automat ed exposure control; mA and/or kV adjustment per patient size (includes targeted exams where dose is matched to clinical indication); or iterative reconstruction. FINDINGS: RIGHT: Right common carotid artery is patent. Calcification right common carotid artery. Calcified at heromatous plaque right carotid bulb extending into the ICA. Less than 50% ICA stenosis. Right ICA is patent to the skull base. LEFT: Left common carotid artery is patent with moderate calcification at the origin. Approximately 5 0% stenosis of the common carotid artery origin at the aortic arch. Mild eccentric narrowing common c arotid artery. Moderate calcification left carotid bulb extending into the ICA. Less than 50% left IC A stenosis. Left ICA is patent to the skull base. Moderate stenosis with dense calcification right subclavian artery origin measuring approximately 60% and left proximal subclavian artery measuring approximately 70% which remain patent. Paranasal sinuses and mastoid air cells well aerated. Fibrosis in the lung apices. Heterogeneous enha ncing bulky right thyroid nodule measures 2.2 x 1.8 cm. Tortuosity with mild kinking of the adjacent common carotid carotid artery. Numerous cervical chain lymph nodes slightly prominent nonspecific but likely reactive. INTRACRANIAL CTA: Both vertebral arteries are patent. Codominant vertebral arteries bilaterally. Basilar artery is goss nt. Normal vascularity to the SIX COLOR PRESS OPERATOR territory bilaterally. Both ICAs are patent at the skull base. Cavernous carotid calcification. Hypoplastic right A1 segment . Normal vascularity to the BREN and MCA territories bilaterally. No evidence of high-grade proximal s tenosis or aneurysm. CT/CT angio headneck* [id number] IMPRESSION: 1. Dense calcification both carotid bulbs with less than 50% bilateral ICA jeffrey nosis. Both ICAs are patent to the skull base. 2. Calcification with atheromatous plaque involving both common carotid arteri es with segmental narrowing which remain patent. 3. Moderate calcification of the left common carotid artery origin with approx imately 50% stenosis. 4. Codominant and patent vertebral arteries bilaterally. 5. Normal intracranial [place] of [place]. 6. Moderate stenosis with dense calcification right subclavian artery origin m easuring approximately 60% and left proximal subclavian artery measuring approx imately 70% which remain patent. 7. Heterogeneously enlarged right thyroid nodule measuring 2.2 x 1.8 cm. This can be further evaluated with ultrasound.
[2020-09-26 09:58] LABS: Blood Urea Nitrogen 22 mg/dL (8-23)
[2020-09-26] MEDS: iodixanol 320 mg/mL 100mL Btl IV (10:18)
== END 2020-09-26 09:01 | disposition home or self-care (01) ==
PROVIDERS: PCP Family Medicine; Visit Provider Internal Medicine Cardiovascular Disease
DX: I65.23 Occlusion and stenosis of bilateral carotid arteries (principal); E04.1 Nontoxic single thyroid nodule
CPT/HCPCS: 36415; 70496; 70498; 82565; 84520

== ENCOUNTER 2021-07-19 13:46 | Oncology outpatient (recurring) (ONCR) | payer MEDICARE, OTHER, SELFPAY ==
[2021-07-19 14:31] LABS: Basophils # 0.1 10^3/uL (0.0-0.1); Basophils % 0.2 %; Eosinophils # 0.1 10^3/uL (0.0-0.8); Eosinophils % 0.2 %; Hematocrit 34.1 % (37.0-47.0); Hemoglobin 10.3 g/dL (11.5-15.3); Lymphocytes # 47.6 10^3/uL (0.8-4.8); Lymphocytes % 83.8 %; Mean Corpuscular HGB Conc 30.2 g/dL (30.0-36.0); Mean Corpuscular Hemoglobin 32.6 pg (28.0-34.0); Mean Corpuscular Volume 107.9 fl (81-99); Mean Platelet Volume 11.3 fL (7.4-10.4); Monocytes # 4.8 10^3/uL (0.2-0.9); Monocytes % 8.5 %; Neutrophils # 4.03 10^3/uL (1.8-7.7); Neutrophils % 7.1 %; Nucleated Red Blood Cells % 0 %; Platelet Count 224 10^3/cmm (130-400); Red Blood Count 3.16 10^6/uL (4.1-5.3); Red Cell Distribution Width 13.2 % (12.1-15.1)
[2021-07-19 14:56] LABS: Alanine Aminotransferase 12 U/L (0-33); Albumin Level 3.9 g/dL (3.5-5.2); Alkaline Phosphatase 124 IU/L (35-105); Blood Urea Nitrogen 25 mg/dL (8-23); Calcium 9.5 mg/dL (8.5-10.5); Carbon Dioxide 19 mmol/L (22-29); Chloride 104 mmol/L (98-107); Globulin 2.8 g/dL (1.3-4.6); Glucose 100 mg/dL (65-115); Osmolality Calculated 292 mOsm/kg (285-295); Sodium 139 mmol/L (136-145); Total Bilirubin 0.4 mg/dL (0.15-1.2); Total Protein 6.7 g/dL (6.6-8.7)
[2021-07-19 14:59] LABS: Anion Gap 20.8 (5-19); Aspartate Amino Transferase 20 U/L (0-32); Lactate Dehydrogenase 237 U/L (135-214); Potassium 4.8 mmol/L (3.5-5.1)
[2021-07-19 16:13] LABS: Slide Review Slide Review Perform
[2021-07-19 16:16] LABS: White Blood Count 56.8 10^3/uL (4.0-10.0)
[2021-07-19 18:40] LABS: Iron 65 ug/dL (37-145)
[2021-07-19 19:45] LABS: Percent Saturation 22.7 % (20-50); Total Iron Binding Capacity 286 mcg/dl; Unsaturated Iron Binding 221 ug/dL (112-347); Vitamin B12 > 2000 pg/mL (232-1245)
== END 2021-08-14 23:59 | disposition home or self-care (01) ==
PROVIDERS: PCP Family Medicine; Visit Provider Internal Medicine Medical Oncology
DX: C91.10 Chronic lymphocytic leukemia of B-cell type not having achieved remission (principal); N18.9 Chronic kidney disease, unspecified; I12.9 Hypertensive chronic kidney disease with stage 1 through stage 4 chronic kidney disease, or unspecified chronic kidney disease; Z79.899 Other long term (current) drug therapy; Z87.891 Personal history of nicotine dependence
CPT/HCPCS: 36415; 80053; 82607; 83540; 83550; 83615; 85025; 99999; G0463

== ENCOUNTER → 2021-10-15 10:19 | Outpatient (BNVA) | payer MEDICARE, OTHER, SELFPAY | PROVIDERS: PCP Family Medicine; Visit Provider Internal Medicine Cardiovascular Disease | DX: I25.10 Atherosclerotic heart disease of native coronary artery without angina pectoris (principal); R55 Syncope and collapse; E78.2 Mixed hyperlipidemia; I65.22 Occlusion and stenosis of left carotid artery; I12.9 Hypertensive chronic kidney disease with stage 1 through stage 4 chronic kidney disease, or unspecified chronic kidney disease; N18.9 Chronic kidney disease, unspecified; Z87.891 Personal history of nicotine dependence | CPT/HCPCS: 99214 ==

== ENCOUNTER → 2021-10-15 11:40 | Outpatient (BNVA) | payer MEDICARE, OTHER, SELFPAY | PROVIDERS: PCP Family Medicine; Visit Provider Internal Medicine Cardiovascular Disease | DX: Z53.9 Procedure and treatment not carried out, unspecified reason (principal) ==

== ENCOUNTER 2021-10-22 10:37 | Oncology outpatient (recurring) (ONCR) | payer MEDICARE, OTHER, SELFPAY ==
[2021-10-22 11:15] LABS: Basophils # 0.1 10^3/uL (0.0-0.1); Basophils % 0.2 %; Eosinophils # 0.2 10^3/uL (0.0-0.8); Eosinophils % 0.2 %; Hematocrit 29.3 % (37.0-47.0); Hemoglobin 9.5 g/dL (11.5-15.3); Lymphocytes # 56.1 10^3/uL (0.8-4.8); Lymphocytes % 88.4 %; Mean Corpuscular HGB Conc 32.4 g/dL (30.0-36.0); Mean Corpuscular Hemoglobin 32.2 pg (28.0-34.0); Mean Corpuscular Volume 99.3 fl (81-99); Monocytes # 2.8 10^3/uL (0.2-0.9); Monocytes % 4.4 %; Neutrophils # 4.17 10^3/uL (1.8-7.7); Neutrophils % 6.6 %; Nucleated Red Blood Cells % 0 %; Platelet Count 206 10^3/cmm (130-400); Red Blood Count 2.95 10^6/uL (4.1-5.3); Red Cell Distribution Width 13.3 % (12.1-15.1)
[2021-10-22 11:54] LABS: Slide Review Slide Review Perform
[2021-10-22 11:56] LABS: White Blood Count 63.5 10^3/uL (4.0-10.0)
[2021-10-22 12:03] LABS: Alanine Aminotransferase 10 U/L (0-33); Albumin Level 3.9 g/dL (3.5-5.2); Alkaline Phosphatase 110 IU/L (35-105); Anion Gap 13.4 (5-19); Aspartate Amino Transferase 17 U/L (0-32); Blood Urea Nitrogen 26 mg/dL (8-23); Calcium 8.9 mg/dL (8.5-10.5); Carbon Dioxide 27 mmol/L (22-29); Chloride 104 mmol/L (98-107); Globulin 2.2 g/dL (1.3-4.6); Glucose 93 mg/dL (65-115); Lactate Dehydrogenase 169 U/L (135-214); Osmolality Calculated 294 mOsm/kg (285-295); Potassium 4.4 mmol/L (3.5-5.1); Sodium 140 mmol/L (136-145); Total Bilirubin 0.4 mg/dL (0.15-1.2); Total Protein 6.1 g/dL (6.6-8.7)
[2021-10-22 14:24] LABS: Iron 73 ug/dL (37-145); Total Iron Binding Capacity 251 mcg/dl; Unsaturated Iron Binding 178 ug/dL (112-347); Vitamin B12 1243 pg/mL (232-1245)
== END 2021-11-14 23:59 | disposition home or self-care (01) ==
PROVIDERS: Nurse Practitioner; PCP Family Medicine; Visit Provider Internal Medicine Medical Oncology
DX: C91.10 Chronic lymphocytic leukemia of B-cell type not having achieved remission (principal); D72.9 Disorder of white blood cells, unspecified; D64.9 Anemia, unspecified
CPT/HCPCS: 36415; 80053; 82607; 83540; 83550; 83615; 85025; 99214

== ENCOUNTER 2021-11-22 14:00 | Oncology outpatient (recurring) (ONCR) | payer MEDICARE, OTHER, SELFPAY ==
--- NOTE | 2021-11-21 10:48 | CT_ITS ---
WS: [id number] CT CHEST, ABDOMEN, AND PELVIS TECHNIQUE: Noncontrast CT of the chest, abdomen, and pelvis with coronal and sagittal reformatted meeka ges. CLINICAL INFORMATION: restaging COMPARISON: CT abdomen pelvis . CTA December 03, 2019. CT chest . DLP: 1062.[address] scans at [facility] use at least one of these dose optimization techniques: automated e xposure control; mA and/or kV adjustment per patient size (includes targeted exams where dose is matc hed to clinical indication); or iterative reconstruction. CT CHEST: Chronic emphysematous changes. No acute pulmonary infiltrates. Calcified granuloma RIGHT lower lobe. No suspicious pulmonary parenchymal opacities. Stable small nodule RIGHT upper lobe measuring 4 mm un changed since December 04, 2019 and 2015. No evidence of metastatic disease in the chest. Dense aortic calcification. Normal caliber thoracic aorta. RIGHT thyroid nodule measuring 2.2 CM. Thi s appears similar to previous. Coronary calcification. No mediastinal or hilar lymphadenopathy. Slightly prominent pretracheal lymph node unchanged since 2019. No axillary lymphadenopathy. CT ABDOMEN AND PELVIS: Noncontrast liver is normal. Small esophageal hiatal hernia. Normal noncontrast spleen. Fatty atrophy of the pancreas. Splenic artery calcification. Adrenal glands are normal. Bilateral renal cortical a trophy. No hydronephrosis in either kidney. Small RIGHT renal cyst. Densely calcified abdominal aorta . No aneurysm. Prior hysterectomy. Sigmoid diverticulosis. No evidence of high-grade small or large bowel obstructio n. No periaortic or pelvic lymphadenopathy. No inguinal lymphadenopathy. CT/[place] [id number] IMPRESSION: 1. No evidence of metastatic disease in the chest. 2. No evidence of metastatic disease in the abdomen or pelvis. 3. Small esophageal hiatal hernia. 4. 4 mm nodule RIGHT upper lobe is stable since 2019 and 2015. 5. RIGHT thyroid nodule measuring 2.2 CM. This appears similar to previous. Th is can be followed up with ultrasound.
[2021-11-21] MEDS: barium sulfate 450 mL Oral Susp PO (12:17)
== END 2021-12-14 23:59 | disposition home or self-care (01) ==
PROVIDERS: PCP Family Medicine; Visit Provider Internal Medicine Medical Oncology
DX: Z53.9 Procedure and treatment not carried out, unspecified reason (principal)
CPT/HCPCS: 71250; 74176

== ENCOUNTER 2021-12-07 18:29 | Inpatient (IN) | payer MEDICARE, OTHER, SELFPAY ==
[2021-12-07] VITALS (26 sets, daily range): BP systolic 131–180; BP diastolic 50–82; PULSE 66–74; RESP 13–23; TEMP 36.1–36.8; O2SAT 90–97; BMI 25.0
--- NOTE | 2021-12-07 18:42 | ED_ITS ---
HPI - Weakness General: Chief complaint: Weakness Stated complaint: weak, not eating Time Seen by Provider: 12/07/21 18:42 History of Present Illness: Ms. Tate is a 86-year-old lady with history of CLL, CAD, CAD, hypertension, hyperlipidemia who presents to the emergency department due to generalized abdominal pain. Onset of symptoms was approximately 5 to 7 days ago and gradual. She notes generalized abdominal discomfort which is worse with attempting to eat. She has not associated nausea and vomiting as well as constipation and burning with urination. Intensity symptoms is moderate to severe. No other specific changes in health, exacerbating, or alleviating factors identified. Onset (ago): day(s) Duration: progressively worsening Location: generalized Severity: severe Quality: aching Exacerbating factors: other Review of Systems General: Reports: 10 or more systems reviewed and unremarkable except in HPI and below PFSH ED PFSH: Medical History Acute UTI Anemia Anxiety CAD (coronary artery disease) Carotid artery disease Chronic lymphocytic leukemia of B-cell type not having achieved remission CKD (chronic kidney disease) CLL (chronic lymphocytic leukemia) Essential hypertension GERD (gastroesophageal reflux disease) Glaucoma Hyperlipidemia Hyponatremia Mitral valve prolapse Personal history of malignant neoplasm of breast 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 Subclavian arterial stenosis Vitamin D deficiency Surgical History H/O: hysterectomy History of coronary artery stent placement (~02/2019) History of rectal surgery S/P bilateral mastectomy S/P inguinal hernia repair Family History Father Cancer Brother Cancer Grandmother Suicide Grandfather Suicide Brother Suicide Other CAD (coronary artery disease) Hypertension Denies family history of Diabetes Clotting disorder Dementia Hyperlipidemia Psychiatric illness Chronic kidney disease (CKD) Anesthesia complication Bleeding disorder Lung disease Stroke Social History Smoking and tobacco status: former smoker Alcohol intake: never Household members: friend(s) Marital status: / Physical Exam Const: COMMON NORMALS: alert GENERAL APPEARANCE: cooperative and well developed HENMT: COMMON NORMALS: normocephalic and atraumatic HEAD & SCALP: normocephalic and atraumatic Eye: COMMON NORMALS: conjunctivae normal CONJUNCTIVA: Yes conjunctivae normal SCLERA: sclerae normal Neck/C-Spine: COMMON NORMALS: supple GENERAL: Yes trachea midline Resp: COMMON NORMALS: normal respiratory effort and clear to auscultation bilaterally EFFORT & INSPECTION: Yes able to speak in complete sentences AUSCULTATION: clear to auscultation bilaterally Cardio: COMMON NORMALS: regular rate and regular rhythm RATE: regular rate RHYTHM: regular rhythm GI: COMMON NORMALS: Soft to palpation PALPATION: Yes Soft to palpation, Yes Tenderness to palpation present (GI), No Guarding due to palpation present (GI) and No Rigid due to palpation Extremity: GENERAL: Yes normal exam except as noted and No edema Neuro: COMMON NORMALS: moves all extremities SENSORIUM/ORIENTATION: Yes alert and No Orientation impaired Psych: COMMON NORMALS: mental status grossly normal and Normal thought process present THOUGHT PROCESS: Normal thought process present Course Vital Signs: Vital signs: Vital Signs Temperature 98.3 F 12/10/21 11:55 Pulse Rate 64 12/10/21 11:55 Respiratory Rate 15 12/10/21 11:55 Blood Pressure 94/45 12/10/21 11:55 Pulse Oximetry 94 12/10/21 11:55 Oxygen Delivery Me thod 12/10/21 11:36 MDM - Weakness Medical Decision Making 86-year-old lady with complex past medical history presenting due to abdominal pain. Abdominal exam as above without evidence of peritonitis or acute surgical abdomen. EKG shows sinus rhythm with nonspecific ST segment abnormalities. Hematologic panel with marked leukocytosis consistent with previous due to underlying malignancy. Hyponatremia significant which is new. Possible evidence of urinary tract infection. Chest x-ray with no lobar consolidation or pneumothorax. CT abdomen and pelvis without evidence of acute surgical pathology. Antibiotics ordered for UTI. Patient admitted for further management of acute hyponatremia and urinary tract infection. Medical Records I reviewed the patient's medical records. Lab Data I reviewed the patient's lab results. : 12/10/21 05:15 12/10/21 05:15 Radiology Impressions Abdomen/Pelvis CT 12/07/21 18:50 IMPRESSION: 1. No acute abnormality in the abdomen or pelvis. 2. Soft tissue nodules in the upper right arm are most likely enlarged lymph nodes. These could be reactive, inflammatory, or a neoplastic process including metastatic disease. COMMENTS: Consistent with the [employer]'s Incidental Findings Committee white paper (J Am Eran Radiol 2018): Any incidental renal lesion less than 1 cm or classified as too small to characterize, or any incidental cystic renal lesion characterized as simple-appearing, is likely benign. No follow-up imaging is recommended for these lesions per consensus recommendations based on imaging criteria. Chest X-Ray 12/07/21 18:50 IMPRESSION: No acute finding. Laboratory Results WBC 77.4 10^3/uL (4.0-10.0) H* 12/07/21 19: RBC 3.22 10^6/uL (4.1-5.3) L 12/07/21 19: Hgb 10.4 g/dL (11.5-15.3) L 12/07/21 19: Hct 30.2 % (37.0-47.0) L 12/07/21 19: MCV 93.8 fl (81-99) 12/07/21 19: MCH 32.3 pg (28.0-34.0) 12/07/21 19: MCHC 34.4 g/dL (30.0-36.0) 12/07/21 19: RDW 12.7 % (12.1-15.1) 12/07/21 19: Plt Count 200 10^3/cmm (130-400) 12/07/21 19: MPV 10.2 fL (7.4-10.4) 12/07/21 19: Neut % (Auto) 6.9 % 12/07/21 19: Lymph % (Auto) 90.1 % 12/07/21 19: [place] % (Auto) 2.4 % 12/07/21 19:26 Eos % (Auto) 0.1 % 12/07/21 19: Baso % (Auto) 0.3 % 12/07/21 19: Neut # (Auto) 5.37 10^3/uL (1.8-7.7) 12/07/21 19: Lymph # (Auto) 69.7 10^3/uL (0.8-4.8) H 12/07/21 19:26 [place] # (Auto) 1.9 10^3/uL (0.2-0.9) H 12/07/21 19:26 Eos # (Auto) 0.1 10^3/uL (0.0-0.8) 12/07/21 19:26 Baso # (Auto) 0.2 10^3/uL (0.0-0.1) H 12/07/21 19:26 Nucleated RBC % (auto) 0 % 12/07/21 19:26 Nucleated RBCs # 0.0 /100WBC 12/07/21 19:26 Sodium 118 mmol/L (136-145) L* 12/07/21 21:26 Potassium 4.1 mmol/L (3.5-5.1) 12/07/21 21:26 Chloride 85 mmol/L (98-107) L 12/07/21 21:26 Carbon Dioxide 22 mmol/L (22-29) 12/07/21 21:26 Anion Gap 15.1 (5-19) 12/07/21 21:26 BUN 12 mg/dL (8-23) 12/07/21 21: Creatinine 0.9 mg/dL (0.5-0.9) 12/07/21 21:26 GFR Calculation Not Reportable 12/07/21 21:26 Glucose 107 mg/dL (65-115) 12/07/21 21: POC Glucose 113 mg/dL (70-110) H 12/07/21 21: Calculated Osmolality 246 mOsm/kg (285-295) L 12/07/21 21:26 Lactate 0.6 mmol/L (0.5-2.2) 12/07/21 19:26 Calcium 8.5 mg/dL (8.5-10.5) 12/07/21 21: Magnesium Cancelled 12/07/21 19:26 Total Bilirubin 0.7 mg/dL (0.15-1.2) 12/07/21 21:26 AST 19 U/L (0-32) 12/07/21 21: ALT 11 U/L (0-33) 12/07/21 21:26 Alkaline Phosphatase 112 U/L (35-105) H 12/07/21 21:26 NT-Pro-B Natriuret Pep 545 pg/mL (0-450) H 12/07/21 21:26 Total Protein 5.9 g/dL (6.6-8.7) L 12/07/21 21:26 Albumin 3.6 g/dL (3.5-5.2) 12/07/21 21: Globulin 2.3 g/dL (1.3-4.6) 12/07/21 21:26 Lipase 260 U/L (13-60) H 12/07/21 21:17 Procalcitonin 0.04 ng/mL (0-0.5) 12/07/21 21: TSH 3.31 uIU/mL (0.27-4.20) 12/07/21 21:26 Urine Color Yellow (Yellow) 12/07/21 21:04 Urine Appearance Sl hazy (CLEAR) 12/07/21 21:04 Urine pH 5 (5-7) 12/07/21 21:04 Ur Specific [place] 1.010 (1.005-1.030) 12/07/21 21:04 Urine Protein Neg (Negative) 12/07/21 21:04 Urine Glucose (UA) Norm (Normal) 12/07/21 21:04 Urine Ketones 1+ (Negative) H 12/07/21 21:04 Urine Blood 2+ (Negative) H 12/07/21 21:04 Urine Nitrate Positive (Negative) H 12/07/21 21:04 Urine Bilirubin Neg (Negative) 12/07/21 21:04 Urine Urobilinogen Norm mg/dL (Negative) 12/07/21 21:04 Ur Leukocyte Esterase 2+ (Negative) H 12/07/21 21:04 Urine RBC 5-10 /hpf (0-2) H 12/07/21 21:04 Urine WBC 25-40 /hpf (0-5) H 12/07/21 21:04 Ur Squamous Epith Cells 0-4 /hpf (0-5) H 12/07/21 21:04 Amorphous Sediment Not Reportable 12/07/21 21:04 Urine Bacteria 3+ /hpf (NONE) H 12/07/21 21:04 Discharge Plan Discharge Patient Disposition: Admitted As Inpatient Admit Provider: Trung Oliveira Clinical Impression: Hyponatremia, Acute UTI, CLL (chronic lymphocytic leukemia) Condition: Stable Discharge Diet: Regular Discharge Activity: Increase activity as tolerated Coding Level of Care Code ED 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
--- NOTE | 2021-12-07 18:50 | XRR_ITS ---
PROCEDURE INFORMATION: Exam: XR Chest Exam date and time: 12/07/2021 6:58 PM Age: 86 years old Clinical indication: Shortness of breath and other: Weakness TECHNIQUE: Imaging protocol: Radiologic exam of the chest. Views: 1 view. COMPARISON: CT chest [place]dpel [id number] 11/21/2021 12:07 PM FINDINGS: Lungs: Calcified granuloma in the right lung. The lungs are otherwise clear. Pleural spaces: Mild apical pleural scarring. Heart/Mediastinum: Unremarkable. No cardiomegaly. Bones/joints: Degenerative changes of the shoulders. XR/XR chest 1V portable [id number] IMPRESSION: No acute finding.
--- NOTE | 2021-12-07 18:50 | CTR_ITS ---
PROCEDURE INFORMATION: Exam: CT Abdomen And Pelvis Without Contrast Exam date and time: 12/07/2021 7:06 PM Age: 86 years old Clinical indication: Abdominal pain; Generalized; Patient HX: PT refused to raise arms for CT; PT not verbal, per family PT has not had appetite for several days with n/v; Additional info: Generalized abd pain, n/v/obstipation TECHNIQUE: Imaging protocol: Computed tomography of the abdomen and pelvis without contrast. Radiation optimization: All CT scans at this facility use at least one of these dose optimization techniques: automated exposure control; mA and/or kV adjustment per patient size (includes targeted exams where dose is matched to clinical indication); or iterative reconstruction. COMPARISON: [place] [id number] 11/21/2021 12:07 PM RADIATION DOSE METRICS: Total DLP (mGy-cm): 615.49 FINDINGS: Lungs: Calcified granuloma in the right lung. Heart: Coronary artery calcifications. Small pericardial effusion. Liver: Normal. No mass. Gallbladder and bile ducts: Tiny calcified stones in the gallbladder. No visible wall thickening. The bile ducts are normal. Pancreas: Normal. No ductal dilation. Spleen: Normal. No splenomegaly. Adrenal glands: Normal. No mass. Kidneys and ureters: Cortical hypodensity in the right kidney is too small to characterize but is most likely a cyst. No follow-up imaging is recommended. Mild chronic perinephric stranding. The kidneys are otherwise unremarkable. No calculus or hydronephrosis. Stomach and bowel: Small duodenal diverticulum. Diverticulosis of the distal colon. No diverticulitis. The stomach and small bowel are unremarkable. No wall thickening or obstruction. Appendix: The appendix is visualized and is normal. Intraperitoneal space: Unremarkable. No free air. No significant fluid collection. Vasculature: Arterial calcifications. No aneurysm. Lymph nodes: Unremarkable. No enlarged lymph nodes. Urinary bladder: Unremarkable as visualized. Reproductive: The uterus and ovaries are absent. Bones/joints: Degenerative changes of the spine. No fracture. Soft tissues: 1.2 cm and 1.3 cm soft tissue density nodules in the medial right upper arm, most likely enlarged lymph nodes. CT/CT abdomen pelvis wo con [id number] IMPRESSION: 1. No acute abnormality in the abdomen or pelvis. 2. Soft tissue nodules in the upper right arm are most likely enlarged lymph nodes. These could be reactive, inflammatory, or a neoplastic process including metastatic disease. COMMENTS: Consistent with the [employer]'s Incidental Findings Committee white paper (J Am Eran Radiol 2018): Any incidental renal lesion less than 1 cm or classified as too small to characterize, or any incidental cystic renal lesion characterized as simple-appearing, is likely benign. No follow-up imaging is recommended for these lesions per consensus recommendations based on imaging criteria.
--- NOTE | 2021-12-07 18:51 | ECG_ITS ---
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 Measurements Intervals [place] Rate: 68 P: 34 WI: 208 QRS: -3 QRSD: 92 T: 105 QT: 438 QTc: 466 Interpretive Statements SINUS RHYTHM POSSIBLE LEFT ATRIAL ENLARGEMENT [-0.1mV P-WAVE IN V1/V2] ST DEVIATION AND MODERATE T-WAVE ABNORMALITY, CONSIDER LATERAL ISCHEMIA [-0.1+ mV T-WAVE IN I/aVL/V5/V6] Compared to ECG 12/04/2019 10:02:18 Sinus arrhythmia no longer present T-wave abnormality still present Possible ischemia still present Electronically Signed On 12-08-2021 11:08:15 CDT by Kristal Jarvis M.D. [email or web address]
[2021-12-07] MEDS: morphine 4 mg/mL SDV 1 mL 2 MG IVP (19:29)
[2021-12-07] MEDS: ondansetron 2 mg/ML SDV 2 mL 4 MG IVP (19:29)
[2021-12-07] MEDS: lactated ringers 1,000 ML 999 ML IV (19:30)
[2021-12-07 19:36] LABS: Basophils # 0.2 10^3/uL (0.0-0.1); Basophils % 0.3 %; Eosinophils # 0.1 10^3/uL (0.0-0.8); Eosinophils % 0.1 %; Hematocrit 30.2 % (37.0-47.0); Hemoglobin 10.4 g/dL (11.5-15.3); Lymphocytes # 69.7 10^3/uL (0.8-4.8); Lymphocytes % 90.1 %; Mean Corpuscular HGB Conc 34.4 g/dL (30.0-36.0); Mean Corpuscular Hemoglobin 32.3 pg (28.0-34.0); Mean Corpuscular Volume 93.8 fl (81-99); Mean Platelet Volume 10.2 fL (7.4-10.4); Monocytes # 1.9 10^3/uL (0.2-0.9); Monocytes % 2.4 %; Neutrophils # 5.37 10^3/uL (1.8-7.7); Neutrophils % 6.9 %; Nucleated Red Blood Cells % 0 %; Platelet Count 200 10^3/cmm (130-400); Positive M 1; Red Blood Count 3.22 10^6/uL (4.1-5.3); Red Cell Distribution Width 12.7 % (12.1-15.1)
[2021-12-07 19:51] LABS: Lactate (Lactic Acid level) 0.6 mmol/L (0.5-2.2)
[2021-12-07 20:06] LABS: White Blood Count 77.4 10^3/uL (4.0-10.0)
[2021-12-07 21:24] LABS: Add Urine Microscopic? YES; Bilirubin Urine Neg (Negative); Blood Urine 2+ (Negative); Glucose Urine UA Norm (Normal); Ketones Urine 1+ (Negative); Leukocyte Esterase Urine 2+ (Negative); Nitrate Urine Positive (Negative); Protein Urine Neg (Negative); Squamous Epithelial Cell Urine 0-4 /hpf (0-5); Urine Appearance SL Hazy (CLEAR); Urine Color Yellow (Yellow); Urobilinogen Urine Norm (Negative); WBC Urine 25-40 /hpf (0-5); pH Urine 5 (5-7)
[2021-12-07 21:25] LABS: Add Urine Culture? Yes; Bacteria Urine 3+ /hpf
[2021-12-07 21:25] LABS: Glucose Point of Care 113 mg/dL (70-110)
[2021-12-07 21:52] LABS: Alanine Aminotransferase 11 U/L (0-33); Albumin Level 3.6 g/dL (3.5-5.2); Alkaline Phosphatase 112 U/L (35-105); Blood Urea Nitrogen 12 mg/dL (8-23); Calcium 8.5 mg/dL (8.5-10.5); Carbon Dioxide 22 mmol/L (22-29); Chloride 85 mmol/L (98-107); Globulin 2.3 g/dL (1.3-4.6); Glucose 107 mg/dL (65-115); Osmolality Calculated 246 mOsm/kg (285-295); Total Bilirubin 0.7 mg/dL (0.15-1.2); Total Protein 5.9 g/dL (6.6-8.7)
[2021-12-07 21:53] LABS: Anion Gap 15.1 (5-19); Aspartate Amino Transferase 19 U/L (0-32); Potassium 4.1 mmol/L (3.5-5.1)
[2021-12-07 21:55] LABS: Sodium 118 mmol/L (136-145)
[2021-12-07 22:00] LABS: Lipase 260 U/L (13-60); Thyroid Stimulating Hormone 3.31 uIU/mL (0.27-4.20)
--- NOTE | 2021-12-07 22:52 | P.HP_ITS ---
Providers/Chief Complaint Admitting Physician: Trung Oliveira MD Primary Care Provider: Kamla Benavidez DO Chief Complaint: weak, not eating History of Present Illness Chayito Tate is a 86 year old female with a past medical history of chronic lymphocytic leukemia, chronic kidney disease, CAD, carotid artery disease, hypertension, recently she saw her [employer] roughly 2 weeks ago, she was told her kidney function was elevated and she had to drink at least 50 ounces of liquid a day, she tells me that she is been trying to increase her water intake, has been taking roughly that amount, she is also been feeling weak, fatigued, tired, she is not able to walk due to generalized weakness. Denies any chest pain, no palpitations, no shortness of breath. Denies any dysuria, no flank pain. Denies any fevers, no cough. Denies any headaches or any blurry vision, no recent falls Review of Systems Const: Denies: fever(s) Eyes: Denies: change in vision Card: Denies: chest pain Resp: Denies: dyspnea GI: Denies: abdominal pain Neuro: Reports: headache(s), weakness in extremities and difficulty walking; Denies: numbness in extremities, sensory changes, lack of coordination, frequent falls, dizziness, Slurred speech present or seizure-like activity Medications/Allergies Home Medications Medication Instructions Recorded Confirmed Last Taken Type cholecalciferol (vitamin D3) 75 3,000 unit PO DAILY 04/09/19 10/22/21 Unknown History mcg (3,000 unit) tablet mecobalamin (vitamin B12) 5,000 5,000 mcg PO DAILY 04/09/19 10/22/21 Unknown History mcg disintegrating tablet diphenhydramine HCl 25 mg capsule 25 mg PO BEDTIME 12/04/19 10/22/21 Unknown History (Benadryl) clopidogrel 75 mg tablet 75 mg PO DAILY #90 tabs 02/12/21 10/22/21 Unknown Rx nitroglycerin 0.4 mg sublingual 0.4 mg sublingual Q5M PRN Chest 02/13/21 10/22/21 Unknown Rx tablet Pain #50 tabs metoprolol tartrate 100 mg tablet 100 mg PO BID #180 tabs 07/03/21 10/22/21 Unknown Rx chlorthalidone 25 mg tablet 25 mg PO DAILY #90 tabs 07/30/21 10/22/21 Unknown Rx amlodipine 5 mg tablet 5 mg PO DAILY #90 tabs 08/29/21 10/22/21 Unknown Rx potassium chloride 8 mEq 8 meq PO DAILY #90 tabs 08/31/21 10/22/21 Unknown Rx tablet,extended release losartan 50 mg tablet 50 mg PO DAILY #90 tabs 10/25/21 Unknown Rx simvastatin 20 mg tablet 20 mg PO DAILY #90 tabs 10/29/21 Unknown Rx Allergies Allergy/AdvReac Type Severity Reaction Status Date / Time Sulfa (Sulfonamide Allergy Mild Unknown Verified 10/22/21 13:11 Antibiotics) Iodinated Contrast Media Allergy Shortness Verified 10/22/21 13:11 of Breath PFSH Acute PFSH: Medical History Anemia Anxiety CAD (coronary artery disease) Carotid artery disease Chronic lymphocytic leukemia of B-cell type not having achieved remission CKD (chronic kidney disease) Essential hypertension GERD (gastroesophageal reflux disease) Glaucoma Hyperlipidemia Mitral valve prolapse Personal history of malignant neoplasm of breast 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 Subclavian arterial stenosis Vitamin D deficiency Surgical History H/O: hysterectomy History of coronary artery stent placement (~02/2019) History of rectal surgery S/P bilateral mastectomy S/P inguinal hernia repair Family History Father Cancer Brother Cancer Grandmother Suicide Grandfather Suicide Brother Suicide Other CAD (coronary artery disease) Hypertension Denies family history of Diabetes Clotting disorder Dementia Hyperlipidemia Psychiatric illness Chronic kidney disease (CKD) Anesthesia complication Bleeding disorder Lung disease Stroke Social History Smoking and tobacco status: former smoker Alcohol intake: never Household members: friend(s) Marital status: / Vitals/I&O/Wt Last Vital Signs Temp 98.2 F 12/07/21 18:32 Pulse 66 12/07/21 22:23 Resp 15 12/07/21 22:23 BP 169/53 12/07/21 22:23 Pulse Ox 95 12/07/21 22:23 O2 Del Method 12/07/21 22:12/07/21 12/07/21 12/07/21 06:59 14:59 22:59 Intake Total 1000 / 1000 Balance 1000 / 1000 Weight last 48 hrs Weight 63.957 kg Physical Exam Const: COMMON NORMALS: no acute distress and patient oriented x3 HENMT: COMMON NORMALS: normocephalic HEAD & SCALP: normocephalic Eye: COMMON NORMALS: Equal, round and reactive pupils present and EOMs intact bilaterally Neck/C-Spine: COMMON NORMALS: no JVD Resp: COMMON NORMALS: normal respiratory effort, No retractions, No use of accessory muscles and clear to auscultation bilaterally AUSCULTATION: clear to auscultation bilaterally Cardio: COMMON NORMALS: no JVD, regular rate, regular rhythm, S1 normal heart sound present and S2 normal heart sound present RATE: regular rate RHYTHM: regular rhythm HEART SOUNDS: S1 normal heart sound present and S2 normal heart sound present GI: COMMON NORMALS: Normal to inspection, nondistended, normoactive bowel sounds present, Soft to palpation, non-tender, No hepatosplenomegaly present, no masses and no bruits PALPATION: Yes Soft to palpation and Yes No hepatospleno megaly present Extremity: COMMON NORMALS: no calf tenderness and no pedal edema Neuro: COMMON NORMALS: patient oriented x3, CN's II-XII intact bilaterally, moves all extremities and no focal motor deficits Psych: COMMON NORMALS: mental status grossly normal Data : 12/07/21 19:26 12/07/21 21:26 A&P Assessment and plan (1) Hyponatremia: (2) Acute UTI: (3) CLL (chronic lymphocytic leukemia): (4) CKD (chronic kidney disease): Plan Hyponatremia -Etiology of this polydipsia versus poor oral intake -Serum sodium 118 -Will recheck serum sodium levels every 4 hours -Has received fluid by ER physician, recheck serum sodium levels, will decide if patient needs fluid therapy versus restriction -Seizure precautions, neurochecks, aspiration precautions -Full code -Lovenox for DVT prophylaxis UTI, Rocephin, follow urine cultures, blood cultures Hypertension continue amlodipine, continue metoprolol hold chlorthalidone Generalized weakness, secondary to hyponatremia, UTI, PT OT Chronic lymphocytic leukemia, elevated white blood cell count, does see Dr. Archibald, currently under discussion about B TK inhibitor vs obinutuzumab/venetoclax regimen Attestations Medical Necessity Statement*: Patient requires hospitalization, inpatient, greater than 2 minutes, for acute hyponatremia, UTI, generalized weakness Coding Level of Care Code Acute Instantizer Operator for Chg Fwd Diagnoses Hyponatremia E87.1 Acute UTI N39.0 CLL (chronic lymphocytic leukemia) C91.10 CKD (chronic kidney disease) N18.9
[2021-12-07] MEDS: cefTRIAXone 1,000 MG in sodium chloride 0.9% (plus) 50 ML 100 MG IV (22:55)
[2021-12-07 23:37] LABS: NT Pro B Type Natriuretic Pept 545 pg/mL (0-450); Procalcitonin 0.04 ng/mL (0-0.5)
[2021-12-08] VITALS (49 sets, daily range): BP systolic 94–176; BP diastolic 38–88; PULSE 60–83; RESP 14–33; TEMP 36.6; O2SAT 90–96; BMI 25.7
[2021-12-08 00:03] LABS: Lactic Sepsis W/Reflex 0.9 mmol/L (0.5-2.2)
[2021-12-08 00:11] LABS: Thyroid Stimulating Hormone 3.31 uIU/mL (0.27-4.20)
[2021-12-08] MEDS: pantoprazole 40 mg SDV IVP ×2 (00:30→22:35)
[2021-12-08] MEDS: enoxaparin 40 mg/0.4 mL Syringe SUBCUT ×2 (00:30→23:14)
[2021-12-08 02:35] LABS: Hematocrit 28.2 % (37.0-47.0); Hemoglobin 9.7 g/dL (11.5-15.3); Mean Corpuscular HGB Conc 34.4 g/dL (30.0-36.0); Mean Corpuscular Hemoglobin 32.7 pg (28.0-34.0); Mean Corpuscular Volume 94.9 fl (81-99); Mean Platelet Volume 10.2 fL (7.4-10.4); Platelet Count 180 10^3/cmm (130-400); Red Blood Count 2.97 10^6/uL (4.1-5.3); Red Cell Distribution Width 12.8 % (12.1-15.1)
[2021-12-08 02:47] LABS: Anion Gap 16.7 (5-19); Blood Urea Nitrogen 12 mg/dL (8-23); Calcium 8.7 mg/dL (8.5-10.5); Carbon Dioxide 23 mmol/L (22-29); Chloride 85 mmol/L (98-107); Glucose 94 mg/dL (65-115); Magnesium 1.9 mg/dL (1.7-2.3); Osmolality Calculated 252 mOsm/kg (285-295); Potassium 3.7 mmol/L (3.5-5.1); Sodium 121 mmol/L (136-145)
[2021-12-08 03:11] LABS: White Blood Count 63.3 10^3/uL (4.0-10.0)
[2021-12-08 03:12] LABS: Absolute Neutrophil 3.8 10^3/cmm (1.4-6.5); Absolute Segmented Neutrophil 3.8 10/cmm (1.6-7.1); Eosinophils 0 %; Lymphocytes 75 %; Lymphocytes Absolute 59.5 10^3/cmm (1.2-3.4); Platelet Estimate Normal (Normal); Segmented Neutrophils 6 %; Total Cells Counted 100 (0-100)
[2021-12-08 03:13] LABS: Smudge Cells 3+
[2021-12-08 07:32] LABS: Sodium 122 mmol/L (136-145)
[2021-12-08] MEDS: metoprolol tartrate 50 mg Tablet 100 MG PO ×2 (09:25→17:01)
[2021-12-08] MEDS: cholecalciferol (vitamin D3) 1,000 unit Tablet 3000 UNIT PO (09:26)
[2021-12-08] MEDS: atorvastatin 40 mg Tablet 20 MG PO (09:26)
[2021-12-08] MEDS: cyanocobalamin 1,000 mcg Tablet 5000 MCG PO (09:26)
[2021-12-08] MEDS: amlodipine 5 mg Tablet PO (09:26)
[2021-12-08] MEDS: clopidogrel 75 mg Tablet PO (09:26)
--- NOTE | 2021-12-08 11:40 | PM.PN ---
Subjective Subjective: Patient has history of CLL is capable of taking care of her at home Does not want half-way Patient is a hard of hearing, is stating that for last 4 to 5 days she is only drinking water without adequate solid food intake Sodium at the time of my evaluation is 122 she is not on any IV fluids If sodium corrects more than 124 mEq then I will add D5 half-normal saline Patient does not show any signs of stroke Vitals/I&O/Wt Last Vital Signs Temp 97.0 F L 12/07/21 23:09 Pulse 72 12/08/21 09:00 Resp 22 H 12/08/21 09:00 BP 152/54 12/08/21 09:00 Pulse Ox 96 12/08/21 09:00 O2 Del Method 12/08/21 09:00 12/07/21 12/08/21 12/08/21 22:59 06:59 14:59 Intake Total 1000 / 1000 50 / 1050 0 / 0 Output Total 425 / 425 200 / 200 Balance 1000 / 1000 -375 / 625 -200 / -200 Weight last 48 hrs Weight 65.771 kg Weight 63.957 kg Physical Exam Narrative: Patient laying supine Able to follow commands Very hard of hearing Weak and lethargic Hypertensive Currently on room air Abdomen soft Looks dehydrated EOMI, PERRLA Nonfocal neuro exam Data : 12/08/21 02:17 12/08/21 07:00 Micro: Microbiology 12/07/21 21:04 Urine Culture - Preliminary Urine,Clean Catch Gram Negative Rods 12/07/21 23:03 Blood Culture - Preliminary Blood SPECIMEN COLLECTED 12/07/21 22:35 Blood Culture - Preliminary Blood SPECIMEN COLLECTED A&P Assessment and plan (1) Hyponatremia: (2) Acute UTI: (3) CLL (chronic lymphocytic leukemia): (4) CKD (chronic kidney disease): Plan Polydipsia Clinically she looks dehydrated Poor p.o. intake She is off IV fluids Will decide about IV fluids with next sodium level Sodium should not correct more than 6 mEq in 24 hours My target for today would be 124, if it is more than 124 we will add D5 half-normal saline No active neurological symptoms other than fatigue and lethargy which could be related to UTI and hyponatremia does not want half-way placement Frequent sodium checks Neurochecks For UTI agree with ceftriaxone Hypertension: Optimize antiplatelet regimen, she is optimized on metoprolol and losartan, I will increase the dose of amlodipine Full code Regular diet Add mirtazapine for anorexia Discontinue atorvastatin Chronic kidney disease without acute exacerbation DVT prophylaxis with Lovenox Attestations Medical Necessity Statement*: Continue ICU management Time Spent in Patient Care: 30 Coding Level of Care Code Acute Inventory And Pricing Associate for Chg Fwd Diagnoses Hyponatremia E87.1 Acute UTI N39.0 CLL (chronic lymphocytic leukemia) C91.10 CKD (chronic kidney disease) N18.9
[2021-12-08 11:45] LABS: Sodium 122 mmol/L (136-145)
[2021-12-08 15:17] LABS: Sodium 124 mmol/L (136-145)
[2021-12-08 19:29] LABS: Sodium 123 mmol/L (136-145)
--- NOTE | 2021-12-08 20:25 | PC.NURSE ---
Addendum entered by Kamla Rojas RN 12/09/21 05:28: Witnessed waste for Mitrazapine. Original Note: Pt refused mitrazapine 7.5mg. Education given on medication purpose. Pt responded guzman taken about 20 pills today, I don't need another one . Med wasted with OLGA Awad.
[2021-12-08] MEDS: cefTRIAXone 1,000 MG in sodium chloride 0.9% (plus) 50 ML 100 MG IV (22:33)
[2021-12-08 23:31] LABS: Sodium 123 mmol/L (136-145)
[2021-12-09] VITALS (19 sets, daily range): BP systolic 112–161; BP diastolic 41–74; PULSE 60–81; RESP 14–22; TEMP 36.5–36.8; O2SAT 90–98
--- NOTE | 2021-12-09 04:17 | PC.NURSE ---
Called lab to check on sodium lab draw. pharmaceutical development technician informed me that the sample was hemolyzed.
[2021-12-09 04:29] LABS: Basophils % 0.1 %; Eosinophils # 0.1 10^3/uL (0.0-0.8); Eosinophils % 0.1 %; Hematocrit 27.4 % (37.0-47.0); Hemoglobin 9.4 g/dL (11.5-15.3); Lymphocytes % 89.2 %; Mean Corpuscular HGB Conc 34.3 g/dL (30.0-36.0); Mean Corpuscular Hemoglobin 32.6 pg (28.0-34.0); Mean Corpuscular Volume 95.1 fl (81-99); Mean Platelet Volume 10.1 fL (7.4-10.4); Monocytes # 0.8 10^3/uL (0.2-0.9); Monocytes % 1.7 %; Neutrophils % 8.7 %; Nucleated Red Blood Cells % 0 %; Platelet Count 170 10^3/cmm (130-400); Red Blood Count 2.88 10^6/uL (4.1-5.3); Red Cell Distribution Width 12.9 % (12.1-15.1)
[2021-12-09 04:45] LABS: Anion Gap 14.5 (5-19); Blood Urea Nitrogen 13 mg/dL (8-23); Calcium 8.9 mg/dL (8.5-10.5); Carbon Dioxide 27 mmol/L (22-29); Chloride 90 mmol/L (98-107); Glucose 99 mg/dL (65-115); Osmolality Calculated 266 mOsm/kg (285-295); Potassium 3.5 mmol/L (3.5-5.1); Sodium 128 mmol/L (136-145)
[2021-12-09 05:03] LABS: White Blood Count 43.7 10^3/uL (4.0-10.0)
[2021-12-09 05:04] LABS: Slide Review Slide Review Perform
--- NOTE | 2021-12-09 05:08 | PC.NURSE ---
Reported sodium increase from 123 to 128 to physician with concern of sodium levels rising too rapidly. No new orders at this time.
[2021-12-09 07:16] LABS: Sodium 125 mmol/L (136-145)
--- NOTE | 2021-12-09 09:18 | PM.PN ---
Subjective Subjective: Sodium 125 at goal with I will transfer her out of ICU to [facility] Patient most likely be discharged once sodium is 130 In good spirits at the bedside Vitals/I&O/Wt Last Vital Signs Temp 98.0 F 12/09/21 08:00 Pulse 75 12/09/21 08:00 Resp 19 H 12/09/21 08:00 BP 147/62 12/09/21 08:00 Pulse Ox 97 12/09/21 08:00 O2 Del Method 12/09/21 08:00 12/08/21 12/09/21 12/09/21 22:59 06:59 14:59 Intake Total 200 / 320 50 / 370 Output Total 150 / 350 150 / 500 Balance 50 / -30 -100 / -130 Weight last 48 hrs Weight 65.771 kg Weight 63.957 kg Physical Exam Narrative: Patient looks euvolemic, S1, S2 Awake and alert Hard of hearing Nonfocal neuro exam Pleasant to communicate Currently on room air EOMI, PERRLA Data : 12/09/21 04:23 12/09/21 06:48 Micro: Microbiology 12/07/21 23:03 Blood Culture - Preliminary Blood NEGATIVE TO DATE 12/07/21 22:35 Blood Culture - Preliminary Blood NEGATIVE TO DATE 12/07/21 21:04 Urine Culture - Preliminary Urine,Clean Catch Gram Negative Rods A&P Assessment and plan (1) Hyponatremia: (2) Acute UTI: (3) CLL (chronic lymphocytic leukemia): (4) CKD (chronic kidney disease): (5) Carotid artery disease: Qualifiers: Carotid artery disease type: stenosis Laterality: left Qualified Code(s): I65.22 - Occlusion and stenosis of left carotid artery Plan Polydipsia related hyponatremia Sodium improving, no signs of pontine melanosis Sodium at goal 125 Clinically patient does look slightly dehydrated Patient worked with PT twice UTI: No acute exacerbation afebrile continue ceftriaxone Essential hypertension, blood pressure at goal Full code Regular diet Anorexia: Continue mirtazapine Chronic kidney disease without acute exacerbation Lovenox for DVT prophylaxis Attestations Medical Necessity Statement*: She can be transferred out of ICU Time Spent in Patient Care: 40 Coding Level of Care Code Acute Underground Distribution Engineer for [facility] Fwd Diagnoses Hyponatremia E87.1 Acute UTI N39.0 CLL (chronic lymphocytic leukemia) C91.10 CKD (chronic kidney disease) N18.9 Carotid artery disease I65.22 Carotid artery disease type: stenosis Laterality: left
[2021-12-09] MEDS: amlodipine 10 mg Tablet PO (09:26)
[2021-12-09] MEDS: losartan 50 mg Tablet PO (09:26)
[2021-12-09] MEDS: metoprolol tartrate 50 mg Tablet 100 MG PO ×2 (09:26→17:48)
[2021-12-09] MEDS: clopidogrel 75 mg Tablet PO (09:26)
[2021-12-09 11:19] LABS: Sodium 124 mmol/L (136-145)
[2021-12-09] MEDS: hyDRALAzine 10 mg Tablet PO ×2 (15:13→20:16)
[2021-12-09] MEDS: sodium chloride 1 gm Tablet PO (17:48)
[2021-12-09] MEDS: mirtazapine 15 mg Tablet 7.5 MG PO (20:16)
[2021-12-09] MEDS: cefTRIAXone 1,000 MG in sodium chloride 0.9% (plus) 50 ML 100 MG IV (22:18)
[2021-12-10 04:36] VITALS: BP 109/49; PULSE 68; RESP 17; TEMP 36.6; O2SAT 95
[2021-12-10 05:35] LABS: Basophils # 0.1 10^3/uL (0.0-0.1); Basophils % 0.2 %; Eosinophils # 0.1 10^3/uL (0.0-0.8); Eosinophils % 0.2 %; Hematocrit 27.3 % (37.0-47.0); Hemoglobin 9.1 g/dL (11.5-15.3); Lymphocytes # 36.4 10^3/uL (0.8-4.8); Lymphocytes % 91.5 %; Mean Corpuscular HGB Conc 33.3 g/dL (30.0-36.0); Mean Corpuscular Hemoglobin 33.1 pg (28.0-34.0); Mean Corpuscular Volume 99.3 fl (81-99); Mean Platelet Volume 10.6 fL (7.4-10.4); Monocytes # 0.2 10^3/uL (0.2-0.9); Monocytes % 0.6 %; Neutrophils # 2.95 10^3/uL (1.8-7.7); Neutrophils % 7.4 %; Nucleated Red Blood Cells % 0 %; Platelet Count 167 10^3/cmm (130-400); Red Blood Count 2.75 10^6/uL (4.1-5.3); Red Cell Distribution Width 13.2 % (12.1-15.1)
[2021-12-10 05:53] LABS: Blood Urea Nitrogen 21 mg/dL (8-23); Calcium 8.5 mg/dL (8.5-10.5); Carbon Dioxide 24 mmol/L (22-29); Chloride 90 mmol/L (98-107); Glucose 93 mg/dL (65-115); Osmolality Calculated 267 mOsm/kg (285-295); Sodium 127 mmol/L (136-145); Uric Acid 8.1 mg/dL (2.4-5.7)
[2021-12-10 05:54] LABS: Anion Gap 16.2 (5-19); Potassium 3.2 mmol/L (3.5-5.1)
[2021-12-10 05:57] LABS: White Blood Count 39.8 10^3/uL (4.0-10.0)
[2021-12-10 08:00] VITALS: BP 117/64; BP 94/45; PULSE 64; PULSE 67; RESP 15; TEMP 36.8; O2SAT 94
[2021-12-10] MEDS: sodium chloride 0.9% 1,000 ML 75 ML IV (09:01)
--- NOTE | 2021-12-10 09:42 | PC.SOCIAL ---
IMM Update pg 2 of IMM updated and reviewed w/ patient. Copy provided and Copy dated, initialed and placed in chart.
[2021-12-10] MEDS: hyDRALAzine 10 mg Tablet PO (10:16)
[2021-12-10] MEDS: clopidogrel 75 mg Tablet PO (10:16)
[2021-12-10] MEDS: metoprolol tartrate 50 mg Tablet 100 MG PO (10:16)
[2021-12-10] MEDS: amlodipine 10 mg Tablet PO (10:17)
[2021-12-10] MEDS: sodium chloride 1 gm Tablet PO (10:17)
--- NOTE | 2021-12-10 10:36 | P.DS_ITS ---
Discharge Providers Date of Admission: 12/07/21 22:09 Date of Discharge: December 10, 2021 Attending Provider at Admission: Trung Oliveira MD Attending Provider at Discharge: Brandon Abraham MD Primary Care Provider: Kamla Benavidez DO Diagnoses at Discharge Discharge Diagnosis (1) Hyponatremia: Status: Acute (2) Acute UTI: Status: Acute (3) CLL (chronic lymphocytic leukemia): Status: Acute (4) CKD (chronic kidney disease): Status: Acute (5) Carotid artery disease: Status: Acute Qualifiers: Carotid artery disease type: stenosis Laterality: left Qualified Code(s): I65.22 - Occlusion and stenosis of left carotid artery Reason for Visit Reason for Visit: weak, not eating Hospital Course Hospital Course 86-year female who carries history of CLL, chronic kidney disease, presented to the hospital with chief complaint of worsening of fatigue, generalized weakness and anorexia. On request of Dr. Grimm she started drinking 50 to 60 ounces of water a day and her solid food intake was very poor at the time of admission she was diagnosed with severe hyponatremia sodium 118. She only received fluid in the ER she was not given any fluids by the hospitalist service. With fluid restriction her sodium gradually improved. In for 24 hours she only improved by 6 mEq, and 3 days her sodium has improved from 118 to 127 which is a very decent sodium increment. With fluid restriction she was given salt tablets. On 12/10 is stating that she will eat better at home and the prefer to go home I did tell them that we need to watch her creatinine and sodium level. She does have follow-up appointment with Dr. Grimm. I will give her 10-day regimen of salt tablets, a [facility] follow-up lab order. She was treated with ceftriaxone for her UTI urine culture showed E. coli. We will give her 5-day regimen of cefpodoxime. She remained afebrile cultures negative. Mirtazapine was added for her poor appetite Physical Exam Narrative: Patient looks slightly dehydrated S1, S2 Awake and alert Hard of hearing Nonfocal neuro exam Pleasant to communicate Currently on room air EOMI, PERRLA ? Discharge Data Studies Completed and Pending Completed Studies During Hospitalization Category Date Time Status CT abdomen pelvis wo con [id number] Stat Cat Scan 12/07/21 18:50 Completed XR chest 1V portable [id number] Stat Exams 12/07/21 18:50 Completed Pending at discharge Category Date Time Status Blood Culture Stat Lab 12/07/21 23:03 Results Osmolality Serum Routine Lab 12/09/21 12:26 Received Osmolality Urine Routine Lab 12/09/21 12:26 Uncollected Radiology Impressions Abdomen/Pelvis CT 12/07/21 18:50 IMPRESSION: 1. No acute abnormality in the abdomen or pelvis. 2. Soft tissue nodules in the upper right arm are most likely enlarged lymph nodes. These could be reactive, inflammatory, or a neoplastic process including metastatic disease. COMMENTS: Consistent with the [employer]'s Incidental Findings Committee white paper (J Am Eran Radiol 2018): Any incidental renal lesion less than 1 cm or classified as too small to characterize, or any incidental cystic renal lesion characterized as simple-appearing, is likely benign. No follow-up imaging is recommended for these lesions per consensus recommendations based on imaging criteria. Chest X-Ray 12/07/21 18:50 IMPRESSION: No acute finding. Laboratory Results WBC 39.8 10^3/uL (4.0-10.0) H* 12/10/21 05:15 Corrected WBC Cancelled 12/09/21 02:58 RBC 2.75 10^6/uL (4.1-5.3) L 12/10/21 05:15 Hgb 9.1 g/dL (11.5-15.3) L 12/10/21 05:15 Hct 27.3 % (37.0-47.0) L 12/10/21 05:15 MCV 99.3 fl (81-99) H 12/10/21 05:15 MCH 33.1 pg (28.0-34.0) 12/10/21 05:15 MCHC 33.3 g/dL (30.0-36.0) 12/10/21 05:15 RDW 13.2 % (12.1-15.1) 12/10/21 05:15 Plt Count 167 10^3/cmm (130-400) 12/10/21 05:15 MPV 10.6 fL (7.4-10.4) H 12/10/21 05:15 Gran % Cancelled 12/09/21 02:58 Neut % (Auto) 7.4 % 12/10/21 05:15 Lymph % (Auto) 91.5 % 12/10/21 05:15 Swain % (Auto) 0.6 % 12/10/21 05:15 Eos % (Auto) 0.2 % 12/10/21 05:15 Baso % (Auto) 0.2 % 12/10/21 05:15 Neut # (Auto) 2.95 10^3/uL (1.8-7.7) 12/10/21 05:15 Lymph # (Auto) 36.4 10^3/uL (0.8-4.8) H 12/10/21 05:15 Swain # (Auto) 0.2 10^3/uL (0.2-0.9) 12/10/21 05:15 Eos # (Auto) 0.1 10^3/uL (0.0-0.8) 12/10/21 05:15 Baso # (Auto) 0.1 10^3/uL (0.0-0.1) 12/10/21 05:15 Absolute Gran (auto) Cancelled 12/09/21 02:58 Nucleated RBC % (auto) 0 % 12/10/21 05:15 Total Counted 100 (0-100) 12/08/21 02:17 Atypical Lymphs % 19.0 % (0-5) H 12/08/21 02:17 Absolute Neutrophils 3.8 10^3/cmm (1.4-6.5) 12/08/21 02:17 Segmented Neutrophils 6 % 12/08/21 02:17 Abs Segm Neuts (Man) 3.8 10/cmm (1.6-7.1) 12/08/21 02:17 Band Neutrophils 0.0 % 12/08/21 02:17 Abs Band Neuts (Man) 0.0 10^3/cmm (0.0-1.2) 12/08/21 02:17 Absolute Lymphocytes 59.5 10^3/cmm (1.2-3.4) H 12/08/21 02:17 Lymphocytes (Manual) 75 % 12/08/21 02:17 Monocytes (Manual) 0.0 % 12/08/21 02:17 Absolute Monocytes 0.0 10^3/cmm (0.1-0.6) L 12/08/21 02:17 Eosinophils (Manual) 0 % 12/08/21 02:17 Absolute Eosinophils 0.0 10^3/cmm (0.0-0.7) 12/08/21 02:17 Basophils (Manual) 0.0 % 12/08/21 02:17 Absolute Basophils 0.0 10^3/cmm (0.0-0.2) 12/08/21 02:17 Nucleated RBCs # 0.0 /100WBC 12/10/21 05:15 Smudge Cells 3+ H 12/08/21 02:17 Platelet Estimate Normal (Normal) 12/08/21 02:17 Sodium 127 mmol/L (136-145) L 12/10/21 05:15 Potassium 3.2 mmol/L (3.5-5.1) L 12/10/21 05:15 Chloride 90 mmol/L (98-107) L 12/10/21 05:15 Carbon Dioxide 24 mmol/L (22-29) 12/10/21 05:15 Anion Gap 16.2 (5-19) 12/10/21 05:15 BUN 21 mg/dL (8-23) 12/10/21 05:15 Creatinine 1.6 mg/dL (0.5-0.9) H 12/10/21 05:15 GFR Calculation Not Reportable 12/10/21 05:15 Glucose 93 mg/dL (65-115) 12/10/21 05:15 POC Glucose 113 mg/dL (70-110) H 12/07/21 21:22 Calculated Osmolality 267 mOsm/kg (285-295) L 12/10/21 05:15 Lactic Acid 0.9 mmol/L (0.5-2.2) 12/07/21 23:39 Lactate 0.6 mmol/L (0.5-2.2) 12/07/21 19:26 Uric Acid 8.1 mg/dL (2.4-5.7) H 12/10/21 05:15 Calcium 8.5 mg/dL (8.5-10.5) 12/10/21 05:15 Magnesium 1.9 mg/dL (1.7-2.3) 12/08/21 02:17 Total Bilirubin 0.7 mg/dL (0.15-1.2) 12/07/21 21:26 AST 19 U/L (0-32) 12/07/21 21:26 ALT 11 U/L (0-33) 12/07/21 21: Alkaline Phosphatase 112 U/L (35-105) H 12/07/21 21: NT-Pro-B Natriuret Pep 545 pg/mL (0-450) H 12/07/21 21: Total Protein 5.9 g/dL (6.6-8.7) L 12/07/21 21: Albumin 3.6 g/dL (3.5-5.2) 12/07/21: Globulin 2.3 g/dL (1.3-4.6) 12/07/21 21: Lipase 260 U/L (13-60) H 12/07/21 21: Procalcitonin 0.04 ng/mL (0-0.5) 12/07/21: TSH 3.31 uIU/mL (0.27-4.20) 12/07/21 21: Urine Color Yellow (Yellow) 12/07/21 21:04 Urine Appearance Sl hazy (CLEAR) 12/07/21 21:04 Urine pH 5 (5-7) 12/07/21 21:04 Ur Specific River 1.010 (1.005-1.030) 12/07/21 21:04 Urine Protein Neg (Negative) 12/07/21 21:04 Urine Glucose (UA) Norm (Normal) 12/07/21 21:04 Urine Ketones 1+ (Negative) H 12/07/21 21:04 Urine Blood 2+ (Negative) H 12/07/21 21:04 Urine Nitrate Positive (Negative) H 12/07/21 21:04 Urine Bilirubin Neg (Negative) 12/07/21 21:04 Urine Urobilinogen Norm mg/dL (Negative) 12/07/21 21:04 Ur Leukocyte Esterase 2+ (Negative) H 12/07/21 21:04 Urine RBC 5-10 /hpf (0-2) H 12/07/21 21:04 Urine WBC 25-40 /hpf (0-5) H 12/07/21 21:04 Ur Squamous Epith Cells 0-4 /hpf (0-5) H 12/07/21 21:04 Amorphous Sediment Not Reportable 12/07/21 21:04 Urine Bacteria 3+ /hpf (NONE) H 12/07/21 21:04 Vitals Last Vital Signs Temp 98.3 F 12/10/21 08:00 Pulse 67 12/10/21 08:00 Resp 15 12/10/21 08:00 BP 117/64 12/10/21 08:00 Pulse Ox 94 12/10/21 08:00 O2 Del Method 12/10/21 08:00 Discharge Plan Discharge Patient Disposition: Home Condition: Stable Prescriptions: New sodium chloride 1 gram Tablet 1 g PO DAILY Qty: 10 0RF mirtazapine 15 mg Tablet 7.5 mg PO BEDTIME Qty: 60 0RF hydralazine 10 mg Tablet 10 mg PO BID Qty: 60 3RF cefpodoxime 200 mg tablet 200 mg PO BID Qty: 10 0RF Rx Instructions: must administer with a meal/food Continued mecobalamin (vitamin B12) 5,000 mcg tablet,disintegrating 5,000 mcg PO DAILY Rx Instructions: pts grabiel giles states the pt takes this medication clopidogrel 75 mg tablet 75 mg PO DAILY Qty: 90 3RF nitroglycerin 0.4 mg tablet, sublingual 0.4 mg SUBLINGUAL Q5M PRN (Reason: Chest Pain) Qty: 50 5RF Rx Instructions: PRN metoprolol tartrate 100 mg tablet 100 mg PO BID Qty: 180 3RF potassium chloride 8 mEq tablet extended release 8 meq PO DAILY Qty: 90 3RF Changed amlodipine 5 mg tablet 10 mg PO DAILY Qty: 90 3RF Discontinued chlorthalidone 25 mg tablet 25 mg PO DAILY Qty: 90 3RF simvastatin 20 mg tablet 20 mg PO DAILY Qty: 90 3RF Discharge Orders: Discharge Order (Routine); Ordered 12/10/21 Ordered By: Brandon Abraham Other Ambulatory Orders: Basic Metabolic Panel (Routine) Timeframe: 3 Days Facility: [facility] - Location: Lab - Main Lab Ordered By: Brandon Abraham DME: Julian (Order) Location: None Selected Ordered By: Brandon Abraham Referrals: Kamla Benavidez DO [Primary Care Provider] - 12/21/21 1:15 pm Discharge Diet: Regular Discharge Activity: Increase activity as tolerated Patient Instructions: Opioid Safety Discharge Attestations Time Spent in Discharge Care*: less than 30 min Quality Metrics Clinical Quality Measures [ No reported AMI, CVA or VTE this stay] Coding Level of Care Code Acute Chg FW DC note Diagnoses Hyponatremia E87.1 Acute UTI N39.0 CLL (chronic lymphocytic leukemia) C91.10 CKD (chronic kidney disease) N18.9 Carotid artery disease I65.22 Carotid artery disease type: stenosis Laterality: left
[2021-12-10 11:36] VITALS: BP 94/45; PULSE 64; RESP 15; TEMP 36.8; O2SAT 94
[2021-12-10] MEDS: enoxaparin 30 mg/0.3 mL Syringe SUBCUT (11:53)
[2021-12-10 11:55] VITALS: BP 94/45; PULSE 64; RESP 15; TEMP 36.8; O2SAT 94
[2021-12-11 16:49] LABS: Osmolality Serum 250 mOsm/kg (278-305)
== END 2021-12-10 11:55 | disposition home or self-care (01) | DRG 690 ==
LOC: ER 22:09 → ICU 22:48 → MEDSURG 12-09 12:26
PROVIDERS: Admitting Provider Family Medicine; Emergency Provider Emergency Medicine; PCP Family Medicine; Visit Provider Internal Medicine
DX: N39.0 Urinary tract infection, site not specified (principal); E87.1 Hypo-osmolality and hyponatremia; C91.10 Chronic lymphocytic leukemia of B-cell type not having achieved remission; B96.20 Unspecified Escherichia coli [E. coli] as the cause of diseases classified elsewhere; N18.9 Chronic kidney disease, unspecified; I12.9 Hypertensive chronic kidney disease with stage 1 through stage 4 chronic kidney disease, or unspecified chronic kidney disease; I25.10 Atherosclerotic heart disease of native coronary artery without angina pectoris; Z95.5 Presence of coronary angioplasty implant and graft; D63.1 Anemia in chronic kidney disease; F41.9 Anxiety disorder, unspecified; K21.9 Gastro-esophageal reflux disease without esophagitis; H40.9 Unspecified glaucoma; E78.5 Hyperlipidemia, unspecified; I34.1 Nonrheumatic mitral (valve) prolapse; Z85.3 Personal history of malignant neoplasm of breast; Z90.13 Acquired absence of bilateral breasts and nipples; I97.2 Postmastectomy lymphedema syndrome; Z79.02 Long term (current) use of antithrombotics/antiplatelets; I65.22 Occlusion and stenosis of left carotid artery; Z87.891 Personal history of nicotine dependence
CPT/HCPCS: 36415; 36416; 71045; 74176; 80048; 80053; 81001; 82962; 83605; 83690; 83735; 83880; 83930; 84145; 84295; 84443; 84550; 85007; 85025; 87040; 87077; 87086; 87186; 93005; 96365; 96372; 96375; 97110; 97116; 97161; 97165; 99285; C9113; J0696; J1650; J2270; J2405; J7030

== ENCOUNTER → 2021-12-21 14:26 | Outpatient (BNVA) | payer MEDICARE, OTHER, SELFPAY | PROVIDERS: PCP Family Medicine; Visit Provider Family Medicine | DX: C91.10 Chronic lymphocytic leukemia of B-cell type not having achieved remission (principal); R19.7 Diarrhea, unspecified; N18.4 Chronic kidney disease, stage 4 (severe) | CPT/HCPCS: 80069; 82310; 83970 ==

== ENCOUNTER → 2021-12-25 10:59 | Outpatient (BNVA) | payer MEDICARE, OTHER, SELFPAY | PROVIDERS: PCP Family Medicine; Visit Provider Family Medicine | DX: N18.4 Chronic kidney disease, stage 4 (severe) (principal); R19.7 Diarrhea, unspecified | CPT/HCPCS: 81003; 82043; 87493; 87506 ==

== ENCOUNTER 2021-12-28 07:48 | Oncology outpatient (recurring) (ONCR) | payer MEDICARE, OTHER, SELFPAY ==
[2021-12-28 08:12] LABS: Basophils # 0.1 10^3/uL (0.0-0.1); Basophils % 0.1 %; Eosinophils # 0.1 10^3/uL (0.0-0.8); Eosinophils % 0.2 %; Hemoglobin 9.7 g/dL (11.5-15.3); Mean Corpuscular HGB Conc 29.4 g/dL (30.0-36.0); Mean Corpuscular Hemoglobin 32.9 pg (28.0-34.0); Mean Corpuscular Volume 111.9 fl (81-99); Mean Platelet Volume 10.4 fL (7.4-10.4); Monocytes # 0.2 10^3/uL (0.2-0.9); Monocytes % 0.3 %; Neutrophils # 3.54 10^3/uL (1.8-7.7); Neutrophils % 6.2 %; Nucleated Red Blood Cells % 0 %; Platelet Count 261 10^3/cmm (130-400); Red Blood Count 2.95 10^6/uL (4.1-5.3); Red Cell Distribution Width 14.4 % (12.1-15.1)
[2021-12-28 08:34] LABS: Alanine Aminotransferase 9 U/L (0-33); Albumin Level 3.7 g/dL (3.5-5.2); Alkaline Phosphatase 155 U/L (35-105); Anion Gap 17.1 (5-19); Aspartate Amino Transferase 16 U/L (0-32); Blood Urea Nitrogen 9 mg/dL (8-23); Calcium 8.8 mg/dL (8.5-10.5); Carbon Dioxide 22 mmol/L (22-29); Chloride 106 mmol/L (98-107); Globulin 2.6 g/dL (1.3-4.6); Glucose 96 mg/dL (65-115); Lactate Dehydrogenase 215 U/L (135-214); Osmolality Calculated 291 mOsm/kg (285-295); Potassium 4.1 mmol/L (3.5-5.1); Sodium 141 mmol/L (136-145); Total Bilirubin 0.4 mg/dL (0.15-1.2); Total Protein 6.3 g/dL (6.6-8.7)
== END 2022-01-14 23:59 | disposition home or self-care (01) ==
PROVIDERS: PCP Family Medicine; Visit Provider Internal Medicine Medical Oncology
DX: C91.10 Chronic lymphocytic leukemia of B-cell type not having achieved remission; D64.9 Anemia, unspecified; Z87.891 Personal history of nicotine dependence
CPT/HCPCS: 80053; 83615; 85025; 99214

== ENCOUNTER 2022-01-29 10:46 | Outpatient (CLI) | payer MEDICARE, OTHER, SELFPAY ==
--- NOTE | 2022-01-29 10:50 | US_ITS ---
WS: [id number] RENAL ULTRASOUND HISTORY: CHRONIC KIDNEY DZ STAGE 4 COMPARISON: None available. TECHNIQUE: 2-D and color Doppler imaging of the kidney submitted. Right kidney: 9.3 cm x 4.7 cm x 5.3 cm. Normal size kidney. No hydronephrosis or solid mass. Cortical cyst upper pole measures 9 x 9 x 10 mm. Left kidney: 10.3 cm x 3.2 cm x 4.4 cm. Normal echogenicity with no hydronephrosis or mass. Aorta: Normal. Urinary Bladder: Minimally distended. US/US renal BI* [id number] IMPRESSION: 1. No hydronephrosis or solid mass. 2. No renal atrophy. 3. 10 mm cyst RIGHT kidney.
== END 2022-01-29 10:47 | disposition home or self-care (01) ==
LOC: RAD 10:46
PROVIDERS: PCP Family Medicine; Visit Provider Internal Medicine Nephrology
DX: N18.4 Chronic kidney disease, stage 4 (severe) (principal); N28.1 Cyst of kidney, acquired
CPT/HCPCS: 76770

== ENCOUNTER → 2022-02-12 11:17 | Outpatient (BNVA) | payer MEDICARE, OTHER, SELFPAY | PROVIDERS: PCP Family Medicine; Visit Provider Family Medicine | DX: E87.1 Hypo-osmolality and hyponatremia (principal); N18.4 Chronic kidney disease, stage 4 (severe); C91.10 Chronic lymphocytic leukemia of B-cell type not having achieved remission; Z79.899 Other long term (current) drug therapy | CPT/HCPCS: 80053; 80069; 81003; 82043; 82310; 83615; 83970; 85025; 87086 ==

== ENCOUNTER 2022-03-25 12:10 | Oncology outpatient (recurring) (ONCR) | payer MEDICARE, OTHER, SELFPAY ==
[2022-03-25 13:11] LABS: Ferritin 113 ng/mL (15-150); Iron 27 ug/dL (37-145); Percent Saturation 12.2 % (20-50); Total Iron Binding Capacity 221 mcg/dl; Unsaturated Iron Binding 194 ug/dL (112-347)
[2022-03-25 13:29] LABS: Alanine Aminotransferase 7 U/L (0-33); Albumin Level 3.6 g/dL (3.5-5.2); Alkaline Phosphatase 113 U/L (35-105); Anion Gap 14.8 (5-19); Aspartate Amino Transferase 16 U/L (0-32); Blood Urea Nitrogen 14 mg/dL (8-23); Calcium 9.2 mg/dL (8.5-10.5); Carbon Dioxide 25 mmol/L (22-29); Chloride 105 mmol/L (98-107); Globulin 2.6 g/dL (1.3-4.6); Glucose 103 mg/dL (65-115); Lactate Dehydrogenase 188 U/L (135-214); Osmolality Calculated 293 mOsm/kg (285-295); Potassium 3.8 mmol/L (3.5-5.1); Sodium 141 mmol/L (136-145); Total Bilirubin 0.3 mg/dL (0.15-1.2); Total Protein 6.2 g/dL (6.6-8.7)
[2022-03-25 13:57] LABS: Basophils # 0.1 10^3/uL (0.0-0.1); Basophils % 0.2 %; Eosinophils # 0.1 10^3/uL (0.0-0.8); Eosinophils % 0.1 %; Hematocrit 32.4 % (37.0-47.0); Hemoglobin 9.9 g/dL (11.5-15.3); Lymphocytes # 35.8 10^3/uL (0.8-4.8); Lymphocytes % 81.4 %; Mean Corpuscular HGB Conc 30.6 g/dL (30.0-36.0); Mean Corpuscular Hemoglobin 31.9 pg (28.0-34.0); Mean Corpuscular Volume 104.5 fl (81-99); Mean Platelet Volume 11.2 fL (7.4-10.4); Monocytes # 3.1 10^3/uL (0.2-0.9); Monocytes % 7.1 %; Nucleated Red Blood Cells % 0 %; Platelet Count 218 10^3/cmm (130-400); Red Cell Distribution Width 13.6 % (12.1-15.1)
[2022-03-25 14:21] LABS: Slide Review Slide Review Perform
[2022-03-25 14:23] LABS: White Blood Count 43.9 10^3/uL (4.0-10.0)
== END 2022-04-16 23:59 | disposition home or self-care (01) ==
PROVIDERS: PCP Family Medicine; Visit Provider Internal Medicine Medical Oncology
DX: C91.10 Chronic lymphocytic leukemia of B-cell type not having achieved remission (principal); D64.9 Anemia, unspecified; Z87.891 Personal history of nicotine dependence; Z85.3 Personal history of malignant neoplasm of breast; E61.1 Iron deficiency
CPT/HCPCS: 36415; 80053; 82728; 83540; 83550; 83615; 85025; 99214

== ENCOUNTER → 2022-04-30 12:49 | Outpatient (BNVA) | payer MEDICARE, OTHER, SELFPAY | PROVIDERS: PCP Family Medicine; Visit Provider Nurse Practitioner Family | DX: I25.10 Atherosclerotic heart disease of native coronary artery without angina pectoris (principal); I12.9 Hypertensive chronic kidney disease with stage 1 through stage 4 chronic kidney disease, or unspecified chronic kidney disease; N18.9 Chronic kidney disease, unspecified; Z87.891 Personal history of nicotine dependence | CPT/HCPCS: 99214 ==

== ENCOUNTER 2022-05-06 12:42 | Oncology outpatient (recurring) (ONCR) | payer MEDICARE, OTHER, SELFPAY ==
[2022-05-06 13:48] LABS: Basophils # 0.1 10^3/uL (0.0-0.1); Basophils % 0.2 %; Eosinophils # 0.1 10^3/uL (0.0-0.8); Eosinophils % 0.2 %; Hematocrit 32.9 % (37.0-47.0); Hemoglobin 9.9 g/dL (11.5-15.3); Lymphocytes # 30.4 10^3/uL (0.8-4.8); Lymphocytes % 86.1 %; Mean Corpuscular HGB Conc 30.1 g/dL (30.0-36.0); Mean Corpuscular Hemoglobin 31.3 pg (28.0-34.0); Mean Corpuscular Volume 104.1 fl (81-99); Mean Platelet Volume 10.7 fL (7.4-10.4); Monocytes # 1.9 10^3/uL (0.2-0.9); Monocytes % 5.3 %; Neutrophils # 2.81 10^3/uL (1.8-7.7); Neutrophils % 8.1 %; Nucleated Red Blood Cells % 0 %; Platelet Count 194 10^3/cmm (130-400); Red Blood Count 3.16 10^6/uL (4.1-5.3); Red Cell Distribution Width 15.1 % (12.1-15.1)
[2022-05-06 14:30] LABS: Iron 73 ug/dL (37-145); Percent Saturation 38.6 % (20-50); Total Iron Binding Capacity 189 mcg/dl; Unsaturated Iron Binding 116 ug/dL (112-347)
[2022-05-06 14:37] LABS: White Blood Count 35.3 10^3/uL (4.0-10.0)
[2022-05-06 14:38] LABS: Slide Review Slide Review Perform
== END 2022-05-14 23:59 | disposition home or self-care (01) ==
PROVIDERS: PCP Family Medicine; Visit Provider Internal Medicine Medical Oncology
DX: D64.9 Anemia, unspecified
CPT/HCPCS: 36415; 83540; 83550; 85025

== ENCOUNTER 2022-06-19 09:54 | Oncology outpatient (recurring) (ONCR) | payer MEDICARE, OTHER, SELFPAY ==
[2022-06-19 10:47] LABS: Reticulocyte % 2.5 % (0.5-2.0)
[2022-06-19 11:03] LABS: Hematocrit 34.3 % (37.0-47.0); Hemoglobin 10.6 g/dL (11.5-15.3); Mean Corpuscular HGB Conc 30.9 g/dL (30.0-36.0); Mean Corpuscular Hemoglobin 32.5 pg (28.0-34.0); Mean Corpuscular Volume 105.2 fl (81-99); Mean Platelet Volume 10.8 fL (7.4-10.4); Platelet Count 174 10^3/cmm (130-400); Red Blood Count 3.26 10^6/uL (4.1-5.3); Red Cell Distribution Width 14.8 % (12.1-15.1)
[2022-06-19 11:05] LABS: Alanine Aminotransferase 6 U/L (0-33); Albumin Level 3.7 g/dL (3.5-5.2); Alkaline Phosphatase 112 U/L (35-105); Aspartate Amino Transferase 13 U/L (0-32); Blood Urea Nitrogen 14 mg/dL (8-23); Calcium 8.4 mg/dL (8.5-10.5); Carbon Dioxide 25 mmol/L (22-29); Chloride 110 mmol/L (98-107); Globulin 2.3 g/dL (1.3-4.6); Glucose 79 mg/dL (65-115); Osmolality Calculated 293 mOsm/kg (285-295); Sodium 142 mmol/L (136-145); Total Bilirubin 0.3 mg/dL (0.15-1.2)
[2022-06-19 11:11] LABS: Anion Gap 11.4 (5-19); Lactate Dehydrogenase 207 U/L (135-214); Potassium 4.4 mmol/L (3.5-5.1)
[2022-06-19 12:27] LABS: Slide Review Slide Review Perform; White Blood Count 36.2 10^3/uL (4.0-10.0)
[2022-06-19 12:28] LABS: Platelet Estimate Decreased (Normal); Segmented Neutrophils 11 %; Total Cells Counted 100 (0-100)
[2022-06-19 12:29] LABS: Lymphocytes 71 %; Lymphocytes Absolute 31.5 10^3/cmm (1.2-3.4); Monocytes Absolute 0.7 10^3/cmm (0.1-0.6)
[2022-06-19 14:36] LABS: Ferritin 110 ng/mL (15-150); Iron 66 ug/dL (37-145); Percent Saturation 30.6 % (20-50); Total Iron Binding Capacity 215 mcg/dl; Unsaturated Iron Binding 149 ug/dL (112-347)
== END 2022-07-14 23:59 | disposition home or self-care (01) ==
PROVIDERS: Nurse Practitioner Family; PCP Family Medicine; Visit Provider Internal Medicine Medical Oncology
DX: C91.10 Chronic lymphocytic leukemia of B-cell type not having achieved remission (principal); D50.9 Iron deficiency anemia, unspecified; K59.00 Constipation, unspecified; I89.0 Lymphedema, not elsewhere classified; Z79.899 Other long term (current) drug therapy; Z85.3 Personal history of malignant neoplasm of breast; Z87.891 Personal history of nicotine dependence
CPT/HCPCS: 36415; 80053; 82728; 83010; 83540; 83550; 83615; 85007; 85025; 85045; 99213; 99214

== ENCOUNTER → 2022-07-25 08:05 | Outpatient (BNVA) | payer MEDICARE, OTHER, SELFPAY | PROVIDERS: PCP Family Medicine; Visit Provider Family Medicine | DX: N18.9 Chronic kidney disease, unspecified (principal); E87.1 Hypo-osmolality and hyponatremia; D72.9 Disorder of white blood cells, unspecified; D64.9 Anemia, unspecified; C91.10 Chronic lymphocytic leukemia of B-cell type not having achieved remission; I10 Essential (primary) hypertension; E78.5 Hyperlipidemia, unspecified; M81.0 Age-related osteoporosis without current pathological fracture; E55.9 Vitamin D deficiency, unspecified | CPT/HCPCS: 80069; 82306; 82542; 82570; 84156; 85025 ==

== ENCOUNTER → 2022-10-28 15:00 | Outpatient (BNVA) | payer MEDICARE, OTHER, SELFPAY | PROVIDERS: PCP Family Medicine; Visit Provider Internal Medicine Cardiovascular Disease | DX: I25.10 Atherosclerotic heart disease of native coronary artery without angina pectoris (principal); I12.9 Hypertensive chronic kidney disease with stage 1 through stage 4 chronic kidney disease, or unspecified chronic kidney disease; N18.32 Chronic kidney disease, stage 3b; E78.2 Mixed hyperlipidemia; I65.22 Occlusion and stenosis of left carotid artery; I77.1 Stricture of artery; C91.10 Chronic lymphocytic leukemia of B-cell type not having achieved remission; Z87.891 Personal history of nicotine dependence | CPT/HCPCS: 99214 ==

== ENCOUNTER 2022-12-13 13:40 | Outpatient (CLI) | payer MEDICARE, OTHER, SELFPAY ==
--- NOTE | 2022-12-13 | USCV_ITS ---
Chayito Tate Age: 87 Gender: F : 1935 Exam Date: 12/13/2022 13:59 Ordering Phys: Wayne Conley MD ([email or web address]) Technologist: MERARI Exam Location: [facility] [place] Indication: Stenosis Risk Factors: Previous Vascular Surgery: Right Brachial BP: / Left Brachial BP: / Right Left Velocity (cm/s) Spectral Plaque Velocity (cm/s) Spectral Plaque Syst/Diast Broadening Syst/Diast Broadening 123.00/15.70 Prox CCA 114.70/ 22.10 115.70/18.40 Mid CCA 100.30/ 16.50 159.10/21.00 Distal CCA 127.90/ 18.70 144.50/23.30 Prox ICA 143.30/ 18.40 119.60/15.70 Mid ICA 163.00/ 25.00 95.50/ 14.50 Distal ICA 177.10/ 26.40 197.90 ECA 138.00 0.91 ICA/CCA 1.38 Antegrade Vertebral Antegrade 57.30/ 19.70 cm/s 40.80/ 14.50 cm/s Tri Subclavian Tri 94.80 119.6 0 FINDINGS Comparison:.01/20/20 Diffuse bilateral scattered calcified plaque and intimal thickening throughout the common carotid arteries and extending through the bifurcation. Mild elevation of velocity throughout the carotid arteries. Antegrade vertebral arteries. CONCLUSIONS Bilateral ICA stenosis at 50%. Diffuse irregular plaque throughout the carotid arteries. Dr. Andreea Rosa DO (Electronically Signed) Final Date: 13 December 2022 14:34 S
== END 2022-12-13 13:41 | disposition home or self-care (01) ==
PROVIDERS: PCP Family Medicine; Visit Provider Internal Medicine Cardiovascular Disease
DX: I65.23 Occlusion and stenosis of bilateral carotid arteries (principal)
CPT/HCPCS: 93880

== ENCOUNTER → 2023-01-09 09:49 | Outpatient (BNVA) | payer MEDICARE, OTHER, SELFPAY | PROVIDERS: PCP Internal Medicine Medical Oncology; Visit Provider Internal Medicine Medical Oncology | DX: I97.2 Postmastectomy lymphedema syndrome (principal); C91.10 Chronic lymphocytic leukemia of B-cell type not having achieved remission; D50.8 Other iron deficiency anemias; D64.9 Anemia, unspecified; E87.1 Hypo-osmolality and hyponatremia | CPT/HCPCS: 80053; 82728; 83550; 83615; 85025 ==

== ENCOUNTER 2023-01-13 14:33 | Oncology outpatient (recurring) (ONCR) | payer MEDICARE, OTHER, SELFPAY | END 2023-01-14 23:59 | disposition home or self-care (01) | PROVIDERS: PCP Internal Medicine Medical Oncology; Visit Provider Internal Medicine Medical Oncology | DX: C91.10 Chronic lymphocytic leukemia of B-cell type not having achieved remission (principal); D64.9 Anemia, unspecified; Z79.899 Other long term (current) drug therapy | CPT/HCPCS: 99213 ==

== ENCOUNTER → 2023-01-16 13:27 | Outpatient (BNVA) | payer MEDICARE, OTHER, SELFPAY | PROVIDERS: PCP Internal Medicine Medical Oncology; Visit Provider Family Medicine | DX: C91.10 Chronic lymphocytic leukemia of B-cell type not having achieved remission (principal); D64.9 Anemia, unspecified | CPT/HCPCS: 85007; 85025 ==

== ENCOUNTER → 2023-02-25 10:22 | Outpatient (BNVA) | payer MEDICARE, OTHER, SELFPAY | PROVIDERS: PCP Internal Medicine Medical Oncology; Visit Provider Family Medicine | DX: N18.31 Chronic kidney disease, stage 3a (principal) | CPT/HCPCS: 80069; 82043; 82310; 83970; 85025 ==

== ENCOUNTER → 2023-02-26 09:31 | Outpatient (BNVA) | payer MEDICARE, OTHER, SELFPAY | PROVIDERS: PCP Internal Medicine Medical Oncology; Visit Provider Family Medicine | DX: N18.31 Chronic kidney disease, stage 3a (principal) | CPT/HCPCS: 85007; 85025 ==

== ENCOUNTER 2023-03-11 09:03 | Emergency (ER) | payer MEDICARE, OTHER, SELFPAY ==
[2023-03-11 09:08] VITALS: BP 184/80; PULSE 65; RESP 16; TEMP 37.1; O2SAT 98; BMI 27.4
--- NOTE | 2023-03-11 09:26 | XRR_ITS ---
PROCEDURE INFORMATION: Exam: XR Lumbosacral Spine Exam date and time: 03/11/2023 9:42 AM Age: 87 years old Clinical indication: Low back pain; Additional info: Trauma TECHNIQUE: Imaging protocol: Radiologic exam of the lumbosacral spine. Views: 2 or 3 views. COMPARISON: CT abdomen pelvis wo con [id number] 12/07/2021 7:06 PM FINDINGS: Bones/joints: Bones are demineralized. Lumbar curvature and alignment is unremarkable. There is a transitional vertebra involving S1 with associated hypoplastic disc. Remaining disc heights are fairly well maintained. There are mild degenerative changes L5-S1 with some endplate sclerosis and facet arthrosis. There are no compression fractures spondylolysis or spondylolisthesis. Pedicles are intact. Soft tissues: Unremarkable. Vasculature: Abdominal aorta is diffusely calcified. XR/XR lumbar spine 2-3V* [id number] IMPRESSION: Mild degenerative changes L5-S1. No acute bony abnormalities.
--- NOTE | 2023-03-11 09:29 | W.ED.FALL ---
HPI - Fall General: Chief Complaint: Fall Stated Complaint: fall, back pain Time Seen by Provider: 03/11/23 09:26 Source: patient Mode of arrival: ambulatory History of Present Illness: 87-year-old female presents emergency room after she stumbled and fell while in the bathroom when she bent over to pick something up as result she fell backwards and hit her lower lumbar spine on the edge of the bathtub she did not strike her head did not lose consciousness she denies neck pain. She is on Plavix no other blood thinner. She denies any other injuries. complaint: fall Onset (ago): day(s) Fall from: standing Place fall occurred: home Loss of consciousness: None Prolonged down time: no Symptoms prior to fall: none Context: tripped/slipped Location of injury: neck and back Associated symptoms-after fall: Denies abdominal pain, chest pain or neck pain Review of Systems Const: Denies: fever(s) or chills Card: Denies: chest pain Resp: Denies: dyspnea GI: Denies: abdominal pain : Denies: dysuria, urinary frequency or urinary urgency Musc: Reports: back pain; Denies: neck pain Skin/Breast: Denies: rash PFSH ED PFSH: Medical History CLL (chronic lymphocytic leukemia) Acute UTI Hyponatremia CKD (chronic kidney disease) Anemia Glaucoma Mitral valve prolapse 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 Anxiety Vitamin D deficiency GERD (gastroesophageal reflux disease) Personal history of malignant neoplasm of breast Chronic lymphocytic leukemia of B-cell type not having achieved remission Subclavian arterial stenosis Carotid artery disease CAD (coronary artery disease) Hyperlipidemia Essential hypertension Surgical History History of coronary artery stent placement (~02/2019) H/O: hysterectomy S/P bilateral mastectomy S/P inguinal hernia repair History of rectal surgery Family History Father Cancer Brother Cancer Grandmother Suicide Grandfather Suicide Brother Suicide Other CAD (coronary artery disease) Hypertension Denies family history of Diabetes Clotting disorder Dementia Hyperlipidemia Psychiatric illness Chronic kidney disease (CKD) Anesthesia complication Bleeding disorder Lung disease Stroke Social History (Reviewed 03/11/23 @ 09:29 by JACOBY Pate Smoking and tobacco/nicotine status: former use of tobacco/nicotine Alcohol intake: never Substance/Drug Use: never Household members: friend(s) Marital status: / Physical Exam Const: GENERAL APPEARANCE: cooperative and comfortable ORIENTATION/CONSCIOUSNESS: Yes awake, Yes oriented to person, Yes oriented to place and Yes oriented to time HENMT: COMMON NORMALS: normocephalic, atraumatic and hearing grossly normal bilaterally HEAD & SCALP: normocephalic and atraumatic Resp: COMMON NORMALS: normal respiratory effort, No retractions, No use of accessory muscles and clear to auscultation bilaterally AUSCULTATION: clear to auscultation bilaterally Cardio: COMMON NORMALS: regular rate, regular rhythm and No murmurs present (Cardio) RATE: regular rate RHYTHM: regular rhythm GI: COMMON NORMALS: Soft to palpation and No hepatosplenomegaly present AUSCULTATION: Yes normoactive bowel sounds PALPATION: Yes Soft to palpation, No Tenderness to palpation present (GI), No Guarding due to palpation present (GI) and Yes No hepatosplenomegaly present : COMMON NORMALS: Yes no CVA tenderness BLADDER/KIDNEY EXAM: Yes no CVA tenderness Back/Pelvis: COMMON NORMALS: no CVA tenderness OTHER: Ecchymosis in the L4-5 lumbar spine area no deformity no laceration Extremity: COMMON NORMALS: normal to inspection, capillary refill normal, no clubbing, cyanosis or edema, no calf tenderness and no pedal edema Neuro: SENSORIUM/ORIENTATION: Yes oriented to person, Yes oriented to place and Yes oriented to time Skin: COMMON NORMALS: no rashes or lesions noted GENERAL SKIN EXAM: no rashes or lesions noted Course Vital Signs: Vital signs: Vital Signs Temperature 98.8 F 03/11/23 09:08 Pulse Rate 65 03/11/23 09:08 Respiratory Rate 16 03/11/23 09:08 Blood Pressure 184/80 03/11/23 09:08 Pulse Oximetry 98 03/11/23 09:08 Oxygen Delivery Me thod Room Air 03/11/23 09:08 MDM - Fall Medical Decision Making No acute fractures. She does have some bruising localized to that area. Discharge home ice can use diclofenac as needed follow-up with primary care if not improving or worsens Medical Records I reviewed the patient's medical records. Lab Data I reviewed the patient's lab results. Radiology Impressions Lumbar Spine X-Ray 03/11/23 09:26 IMPRESSION: Mild degenerative changes L5-S1. No acute bony abnormalities. All radiology interpretation(s) finalized by discharge Discharge Plan Discharge Patient Disposition: Home Clinical Impression: Back pain, Fall Condition: Stable Prescriptions: New diclofenac sodium 75 mg tablet,delayed release (DR/EC) 75 mg PO Q12H PRN (Reason: pain) Qty: 20 0RF No Action mecobalamin (vitamin B12) 5,000 mcg tablet,disintegrating 5,000 mcg PO DAILY Rx Instructions: pts grabiel giles states the pt takes this medication ferrous sulfate 325 mg (65 mg iron) tablet,delayed release (DR/EC) 325 mg PO DAILY amlodipine 5 mg tablet 5 mg PO DAILY Qty: 90 3RF clopidogrel 75 mg tablet 75 mg PO DAILY Qty: 90 3RF metoprolol tartrate 100 mg tablet 100 mg PO BID Qty: 180 3RF nitroglycerin 0.4 mg tablet, sublingual 0.4 mg SUBLINGUAL Q5M PRN (Reason: Chest Pain) Qty: 50 5RF Rx Instructions: PRN cholecalciferol (vitamin D3) 25 mcg (1,000 unit) capsule 25 mcg PO DAILY (DME) wheelchair See Rx Instructions .Route .MEDSUPPLY Qty: 1 0RF Rx Instructions: As directed 99 months (DME) wheeled walker with seat See Rx Instructions .Route .MEDSUPPLY Qty: 1 0RF Rx Instructions: As directed hydralazine 25 mg tablet 25 mg PO BID Qty: 90 5RF mirtazapine 15 mg tablet 15 mg PO BEDTIME Qty: 90 1RF potassium chloride 10 mEq capsule, extended release 10 meq PO DAILY Qty: 90 3RF Discharge Orders: Discharge ED (Routine); Ordered 03/11/23 Ordered By: Abimael Guzman Referrals: Remy Archibald MD [Primary Care Provider] - Discharge Diet: Usual diet Discharge Activity: Increase activity as tolerated Patient Instructions: Opioid Safety, Pain Management Activity Restrictions/Additional Instructions: Thank you for choosing [facility] for your healthcare needs today. Please realize this is an emergency room and that we are providing you with a medical screening exam and this may not be complete and all inclusive of all the testing and or work up that you may need to determine your ailment or severity of your illness. It is very important that you follow up as instructed or that you return to the Emergency Department should you have concerns or if your condition changes or worsens in any way. You are seen today after a fall with some bruising in your back there is no acute fractures on the x-rays. He will likely be very sore over the next several days the clopidogrel that you take will increase the bruising. 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
== END 2023-03-11 10:26 | disposition home or self-care (01) ==
PROVIDERS: Emergency Provider Family Medicine; PCP Internal Medicine Medical Oncology
DX: M54.50 Low back pain, unspecified (principal); Z79.02 Long term (current) use of antithrombotics/antiplatelets; Z85.6 Personal history of leukemia; I12.9 Hypertensive chronic kidney disease with stage 1 through stage 4 chronic kidney disease, or unspecified chronic kidney disease; N18.9 Chronic kidney disease, unspecified; I25.10 Atherosclerotic heart disease of native coronary artery without angina pectoris; E78.5 Hyperlipidemia, unspecified; Z87.891 Personal history of nicotine dependence; W18.39XA Other fall on same level, initial encounter
CPT/HCPCS: 72100; 99283

== ENCOUNTER → 2023-07-07 13:42 | Outpatient (BNVA) | payer MEDICARE, OTHER, SELFPAY | PROVIDERS: PCP Internal Medicine Medical Oncology; Visit Provider Internal Medicine Cardiovascular Disease | DX: I25.10 Atherosclerotic heart disease of native coronary artery without angina pectoris (principal); E78.2 Mixed hyperlipidemia; I10 Essential (primary) hypertension; I65.22 Occlusion and stenosis of left carotid artery; I77.1 Stricture of artery; I34.1 Nonrheumatic mitral (valve) prolapse | CPT/HCPCS: 99214 ==

== ENCOUNTER 2023-08-18 14:10 | Oncology outpatient (recurring) (ONCR) | payer MEDICARE, OTHER, SELFPAY | END 2023-09-14 23:59 | disposition home or self-care (01) | PROVIDERS: PCP Family Medicine; Visit Provider Nurse Practitioner Family | DX: Z53.9 Procedure and treatment not carried out, unspecified reason (principal); C91.10 Chronic lymphocytic leukemia of B-cell type not having achieved remission; D64.9 Anemia, unspecified; Z87.891 Personal history of nicotine dependence | CPT/HCPCS: 80053; 82728; 83550; 83615; 85025; 99214 ==

== ENCOUNTER → 2024-01-13 13:40 | Outpatient (BNVA) | payer MEDICARE, OTHER, SELFPAY | PROVIDERS: PCP Family Medicine Adult Medicine; Visit Provider Internal Medicine Cardiovascular Disease | DX: I25.10 Atherosclerotic heart disease of native coronary artery without angina pectoris (principal); E78.2 Mixed hyperlipidemia; I77.1 Stricture of artery; I34.1 Nonrheumatic mitral (valve) prolapse; C91.10 Chronic lymphocytic leukemia of B-cell type not having achieved remission; Z87.891 Personal history of nicotine dependence; I12.9 Hypertensive chronic kidney disease with stage 1 through stage 4 chronic kidney disease, or unspecified chronic kidney disease; N18.9 Chronic kidney disease, unspecified | CPT/HCPCS: 99214 ==

== ENCOUNTER 2024-02-19 14:37 | Oncology outpatient (recurring) (ONCR) | payer MEDICARE, OTHER, SELFPAY | END 2024-03-16 23:59 | disposition home or self-care (01) | PROVIDERS: PCP Family Medicine Adult Medicine; Visit Provider Nurse Practitioner Family | DX: C91.10 Chronic lymphocytic leukemia of B-cell type not having achieved remission (principal); D64.9 Anemia, unspecified; Z87.891 Personal history of nicotine dependence | CPT/HCPCS: 99213 ==

== ENCOUNTER 2024-03-17 09:25 | Emergency (ER) | payer MEDICARE, OTHER, SELFPAY ==
[2024-03-17 09:27] VITALS: BP 159/80; PULSE 105; RESP 16; TEMP 36.8; O2SAT 88; BMI 28.3
--- NOTE | 2024-03-17 09:51 | ECG_ITS ---
[facility]17 Pat Name: Chayito Tate Department: Room: Gender: Female Field Captain: : 1935 Requested By: Gasper Monteiro Order Number: [id number] Naveed MD: Tobin Wang M.D. Measurements Intervals [place] Rate: 105 P: 62 ID: 160 QRS: 62 QRSD: 78 T: 34 QT: 335 QTc: 444 Interpretive Statements SINUS TACHYCARDIA POSSIBLE LEFT ATRIAL ENLARGEMENT [-0.1mV P-WAVE IN V1/V2] LEFT VENTRICULAR HYPERTROPHY AND ST-T CHANGE [VOLTAGE CRITERIA PLUS ST/T ABNORMALITY] Compared to ECG 12/07/2021 18:58:42 Left ventricular hypertrophy now present ST (T wave) deviation now present Sinus rhythm no longer present T-wave abnormality no longer present Possible ischemia no longer present Electronically Signed On 03-18-2024 12:31:03 SURVEY MANAGER by Tobin Wang M.D. [email or web address]
--- NOTE | 2024-03-17 09:51 | XRR_ITS ---
PROCEDURE INFORMATION: Exam: XR Chest Exam date and time: 03/17/2024 9:53 AM Age: 88 years old Clinical indication: Shortness of breath; Additional info: SOB TECHNIQUE: Imaging protocol: Radiologic exam of the chest. Views: 1 view. COMPARISON: CR XR chest 1V portable [id number] 12/07/2021 6:58 PM FINDINGS: Lungs: Both lungs demonstrate mild diffuse chronic interstitial coarsening. In addition, there is area of focal nodularity left mid lung field. Pleural spaces: Unremarkable. No pleural effusion. No pneumothorax. Heart/Mediastinum: Unremarkable. No cardiomegaly. Bones/joints: The bony structures demonstrate diffuse osteopenia. XR/XR chest 1V portable [id number] IMPRESSION: Poorly defined nodularity of the left lung. This has developed since 2021. Nodule versus infiltrate.
--- NOTE | 2024-03-17 09:59 | PC.NURSE ---
pt refusing blood work/IV, nasal swab. pt states to nurse you are a stupid, fucking little ass bitch and do not touch me, sit my head up before I rip yours off . pt refusing to speak to nurse after this encounter.
[2024-03-17 10:09] LABS: Bilirubin Urine Negative (Negative); Blood Urine 2+ (Negative); Glucose Urine UA Negative (Normal); Ketones Urine 1+ (Negative); Leukocyte Esterase Urine Negative (Negative); Nitrate Urine Negative (Negative); Protein Urine 4+ (Negative); Specific Gravity, Urine 1.021 (1.005-1.030); Urine Appearance Clear (CLEAR); Urine Color Yellow (Yellow); Urobilinogen Urine 0.2 mg/dL (Negative); pH Urine 5.5 (5-7)
[2024-03-17 10:14] LABS: Add Urine Microscopic? YES; Bacteria Urine None Seen /hpf; Hyaline Casts Urine 43.44 /lpf; RBC Urine 0-2 /hpf (0-2); Squamous Epithelial Cell Urine 0-5 /hpf (0-5); WBC Urine 0-5 /hpf (0-5)
--- NOTE | 2024-03-17 10:17 | PC.NURSE ---
pt called this nurse adali ; states ER charge nurse was fat mom with a knob on her head . this nurse explained urinary straight cath/EKG procedures to family that were performed prior to family arrival, family cooperative and apologetic for patient behavior. per family and patient, requests to go home without further testing/treatment. ED physician notified.
--- NOTE | 2024-03-17 10:28 | PC.NURSE ---
pt refused this nurse to assist from bed to wheelchair, family assisted pt; transported to [facility].
--- NOTE | 2024-03-17 10:31 | W.ED.SOB ---
HPI - SOB/Dyspnea General: Chief Complaint: Shortness of Breath/Dyspnea Stated Complaint: SOB Time Seen by Provider: 03/17/24 09:46 Source: patient and EMS Mode of arrival: EMS Limitations: no limitations History of Present Illness: HPI Narrative: 88-year-old female states she has had cough shortness of breath over the last 2 days. Patient was recently admitted and discharged from [facility] for UTI patient states she feels better since she has been here has had nonproductive cough per EMS she is having some hypoxia they put her on oxygen here we are been able to take her off the oxygen. Associated symptoms: Deny abdominal pain, chest pain, fever(s), nausea or vomiting Related Data Home Medications Medication Instructions Recorded Confirmed mecobalamin (vitamin B12) 5,000 5,000 mcg PO DAILY 04/09/19 02/19/24 mcg disintegrating tablet cholecalciferol (vitamin D3) 25 25 mcg PO DAILY 12/28/21 02/19/24 mcg (1,000 unit) capsule ferrous sulfate 325 mg (65 mg 325 mg PO DAILY 04/30/22 02/19/24 iron) tablet,delayed release Stool Softner PO 01/13/24 02/19/24 Previous Rx's Medication Instructions Recorded wheelchair #1 ea 12/21/21 nitroglycerin 0.4 mg sublingual 0.4 mg sublingual Q5M PRN Chest 04/30/22 tablet Pain #50 tabs wheeled walker with seat #1 ea 07/16/22 amlodipine 5 mg tablet 5 mg PO DAILY #90 tabs 04/18/23 clopidogrel 75 mg tablet 75 mg PO DAILY #90 tabs 04/18/23 metoprolol tartrate 100 mg tablet 100 mg PO BID #180 tabs 06/02/23 hydralazine 10 mg tablet See Rx Instructions .Route 01/05/24 .COMPLEX #180 tabs mirtazapine 15 mg tablet 15 mg PO BEDTIME #90 tabs 01/22/24 potassium chloride 10 mEq 10 meq PO DAILY #90 caps 01/22/24 capsule,extended release cephalexin 500 mg capsule 500 mg PO TID 7 days #21 caps 03/17/24 Allergies Allergy/AdvReac Type Severity Reaction Status Date / Time Sulfa (Sulfonamide Allergy Mild Unknown Verified 01/13/24 13:59 Antibiotics) Iodinated Contrast Media AdvReac ADR-Nausea Verified 01/13/24 13:59 Review of Systems Const: Denies: fever(s), chills, body aches or change in appetite ENMT: Denies: throat pain or dental pain Card: Denies: chest pain Resp: Reports: dyspnea and non-productive cough GI: Denies: abdominal pain, nausea, vomiting or diarrhea Musc: Denies: neck pain or back pain Skin/Breast: Denies: rash Neuro: Denies: headache(s) PFSH ED PFSH: Medical History Acute UTI Anxiety CAD (coronary artery disease) Carotid artery disease Chronic lymphocytic leukemia of B-cell type not having achieved remission CKD (chronic kidney disease) CLL (chronic lymphocytic leukemia) Essential hypertension GERD (gastroesophageal reflux disease) Glaucoma Hyperlipidemia Mitral valve prolapse Personal history of malignant neoplasm of breast 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 Subclavian arterial stenosis Vitamin D deficiency Surgical History H/O: hysterectomy History of coronary artery stent placement (~02/2019) History of rectal surgery S/P bilateral mastectomy S/P inguinal hernia repair Family History Father Cancer Brother Cancer Grandmother Suicide Grandfather Suicide Brother Suicide Other CAD (coronary artery disease) Hypertension Denies family history of Diabetes Clotting disorder Dementia Hyperlipidemia Psychiatric illness Chronic kidney disease (CKD) Anesthesia complication Bleeding disorder Lung disease Stroke Social History Smoking and tobacco/nicotine status: former use of tobacco/nicotine Alcohol intake: never Substance/Drug Use: never Household members: friend(s) Marital status: / Physical Exam Const: COMMON NORMALS: no acute distress and patient oriented x3 HENMT: COMMON NORMALS: atraumatic HEAD & SCALP: atraumatic Chest: COMMONS NORMALS: normal inspection of the chest Resp: COMMON NORMALS: normal respiratory effort GI: INSPECTION: Yes normal to inspection Neuro: COMMON NORMALS: patient oriented x3 Course Vital Signs: Vital signs: Vital Signs Temperature 98.3 F 03/17/24 09:27 Pulse Rate 105 H 03/17/24 09:27 Respiratory Rate 16 01/01/25 09:27 Blood Pressure 159/80 01/01/25 09:27 Pulse Oximetry 88 L 03/17/24 09:27 Oxygen Delivery Me thod Room Air 03/17/24 09:27 MDM - SOB/Dyspnea Medical Decision Making Patient presents with cough x-ray shows mass versus pneumonia we will place her on antibiotics with the patient had to drive here she wanted to go home I went and spoke to her at length she would not let me examine her either she would not let nurse draw blood she states she feels improved and just would like to go back on home her friend who takes care of her came to the ER and did discharge her with him she has decision-making capacity. Medical Records I reviewed the patient's medical records. Lab Data Labs/Radiology: Laboratory Results Amorphous Sediment Not Reportable 03/17/24 09:40 All radiology interpretation(s) finalized by discharge Discharge Plan Discharge Patient Disposition: Home Clinical Impression: Community acquired pneumonia Condition: Stable Prescriptions: New cephalexin 500 mg capsule 500 mg PO TID 7 Days Qty: 21 0RF No Action mecobalamin (vitamin B12) 5,000 mcg tablet,disintegrating 5,000 mcg PO DAILY Rx Instructions: pts grabiel giles states the pt takes this medication ferrous sulfate 325 mg (65 mg iron) tablet,delayed release (DR/EC) 325 mg PO DAILY nitroglycerin 0.4 mg tablet, sublingual 0.4 mg SUBLINGUAL Q5M PRN (Reason: Chest Pain) Qty: 50 5RF Rx Instructions: PRN cholecalciferol (vitamin D3) 25 mcg (1,000 unit) capsule 25 mcg PO DAILY (DME) wheelchair See Rx Instructions .Route .MEDSUPPLY Qty: 1 0RF Rx Instructions: As directed 99 months (DME) wheeled walker with seat See Rx Instructions .Route .MEDSUPPLY Qty: 1 0RF Rx Instructions: As directed Stool Softner PO potassium chloride 10 mEq capsule, extended release 10 meq PO DAILY Qty: 90 0RF mirtazapine 15 mg tablet 15 mg PO BEDTIME Qty: 90 1RF clopidogrel 75 mg tablet 75 mg PO DAILY Qty: 90 3RF amlodipine 5 mg tablet 5 mg PO DAILY Qty: 90 3RF metoprolol tartrate 100 mg tablet 100 mg PO BID Qty: 180 3RF hydralazine 10 mg tablet See Rx Instructions .ROUTE .COMPLEX Qty: 180 0RF Dose Instruction: Take 1 tablet by mouth twice daily Rx Instructions: Take 1 tablet by mouth twice daily Discharge Orders: Discharge ED (Routine); Ordered 03/17/24 Ordered By: Gasper Monteiro Referrals: Mike Ro MD [Primary Care Provider] - Discharge Diet: Advance as tolerated Discharge Activity: Resume usual activity Patient Instructions: Pneumonia (ED) Coding Level 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
[2024-03-17 10:32] VITALS: BP 123/84
[2024-03-17 10:39] LABS: UA Slide Review UA Slide Review Perf
[2024-03-17 10:40] LABS: Add Urine Culture? No; Fine Granular Casts Urine 0-4 /lpf; Mucus Urine TRACE /hpf
== END 2024-03-17 10:32 | disposition home or self-care (01) ==
PROVIDERS: Emergency Provider Emergency Medicine; PCP Family Medicine Adult Medicine
DX: J18.9 Pneumonia, unspecified organism (principal); Z79.02 Long term (current) use of antithrombotics/antiplatelets; Z87.891 Personal history of nicotine dependence; I12.9 Hypertensive chronic kidney disease with stage 1 through stage 4 chronic kidney disease, or unspecified chronic kidney disease; N18.9 Chronic kidney disease, unspecified; I25.10 Atherosclerotic heart disease of native coronary artery without angina pectoris; E78.5 Hyperlipidemia, unspecified
CPT/HCPCS: 71045; 81001; 93005; 93010; 99285